=== PATIENT | male | born 1995 | race Caucasian/White ===

== ENCOUNTER 2024-04-20 20:06 | Emergency (ER) | payer MEDICAID, SELFPAY ==
[2024-04-20 20:07] VITALS: BP 139/95; PULSE 138; RESP 14; TEMP 36.5; O2SAT 96; BMI 22.8
[2024-04-20] MEDS: Penicillin Vk 250 MG Tablet 500 MG PO (21:31)
--- NOTE | 2024-04-20 21:34 | ED.VIS.DENTA ---
HPI History of Present Illness Chief Complaint: Dental Informant: patient Onset/Context/Timing Onset: Yesterday Context: Gradual Onset Timing: Continuous Quality: Aching Location: Left lower molars Worsened by: Eating Relieved by: - (Tylenol) Associated Symptoms Assocated Symptom - Dental: jaw swelling, face swelling and cold sensitivity; Negative for fever or hot sensitivity Narrative Narrative: Patient presents with left lower dental pain that began yesterday. Patient states that a piece of his left lower molar broke off yesterday. Patient describes his pain as aching. Patient states he was taking some Tylenol which helped somewhat. Patient states his pain is worse with eating. Patient admits to some swelling of his jaw and face. Patient also admits to some cold sensitivity. Patient denies any fevers or chills. PFSH PFSH Medical History no medical history no medical history Allergy/AdvReac Type Severity Reaction Status Date / Time No Known Allergies Allergy Verified 04/20/24 20:09 Family History no significant family his Surgical History no surgical history no surgical history Social History (Updated 04/20/24 @ 21:[address] Ray Munson, DO) Smoking Status: Current every day smoker tobacco type: cigarettes ROS ROS ED Constitutional Constitutional ED: Denies chills or fever(s) Eyes Eyes: Denies blurry vision or change in vision ENT ENT ED: Denies rhinorrhea or sore throat Cardiovascular Cardiovascular: Denies chest pain or palpitations Respiratory/Chest Respiratory/Chest: Denies cough or dyspnea Gastrointestinal Gastrointestinal: Denies nausea or vomiting Genitourinary Genitourinary ED: Denies dysuria or hematuria Musculoskeletal Musculoskeletal: Denies back pain or neck pain Integumentary Denies abscess or rash Neurologic Neurologic: Denies headache(s) or weakness Allergic/Immunologic Allergic/Immunologic ED: Denies mouth swelling or urticaria EXAM Physical Exam Const Vital Signs: 04/20/24 20:07 Temperature 97.7 F L Temperature Source Temporal Pulse Rate 138 H Respiratory Rate 14 Blood Pressure 139/95 H Blood Pressure Mean 109 Pulse Ox 96 Oxygen Delivery Method Room Air Positive well nourished and well developed General Appearance ED: well developed and NAD HEENT HEENT Narrative: There are multiple caries noted. There is tenderness to percussion over the left lower first molar. There is some gingival edema around this tooth. There is no fluctuance. There is no evidence of any abscess. There is no sublingual edema. There is no evidence of Jose Luis's angina. Mouth ED: Yes oral and palatal mucosa normal Mouth: oral and palatal mucosa normal Teeth and Gingiva: caries and gingiva abnormal Positive for gingival edema Throat: posterior oropharynx normal Neck no lymphadenopathy, supple and no JVD General: Negative for anterior neck swelling, tenderness or submandibular swelling Neuro oriented x3, CN's II-XII intact bilaterally, moves all extremities, no focal motor deficits and no sensory deficits noted Sensorium / Orientation: alert Motor Exam: strength 5/5 throughout MDM MDM MDM Narrative Medical decision making narrative: Smoking cessation was discussed. Patient was advised that these are most likely infected dental caries. Patient was given a dose of Pen-Vee K here. Patient was given a prescription for Pen-Vee K. Patient was given a dental referral list. Patient was instructed to follow-up in 5 to 7 days. Patient was instructed to take Tylenol or ibuprofen as needed for pain. Patient understood and was agreeable with the plan. All questions were answered. Discharge Plan Triage Chief Complaint: Dental ED Provider: Ray Munson Dx/Rx/DC Orders Clinical Impression: Infected dental caries, Tobacco use disorder Instructions: ED Dental Pain, ED Dental Cavity Stand Alone Forms: ED Work / School Excuse Primary Care Provider: Care Physician,No Primary Referrals: Care Physician,No Primary [Primary Care Provider] - Dentist,Your [STAFF PHYSICIAN] - 5-7 Days Print Language: [place] Disposition Disposition: Home, Self Care
== END 2024-04-20 21:54 | disposition home or self-care (01) ==
PROVIDERS: Emergency Provider Emergency Medicine; Visit Provider Emergency Medicine
DX: K02.9 Dental caries, unspecified (principal); F17.210 Nicotine dependence, cigarettes, uncomplicated
CPT/HCPCS: 99282

== ENCOUNTER 2024-09-22 17:00 | Emergency (ER) | payer MEDICAID, SELFPAY ==
[2024-09-22 17:01] VITALS: BP 115/78; PULSE 72; RESP 16; TEMP 37.1; O2SAT 98; BMI 23.1
[2024-09-22 17:04] VITALS: BP 115/78; PULSE 72; RESP 16; TEMP 37.1; O2SAT 98
--- OUTSIDE RECORDS SUMMARY | 2024-09-22 18:22 | XMS RPT_ITS | CCD ---
Author Organization [facility] Care Team Providers Care Airfield Services Officer Name Role Phone TOD GUAN Unavailable Unavailable ROGETOD LOPES Unavailable Unavailable NO REFERRING DR Unavailable Unavailable KAFOREY, TC Unavailable Unavailable KAFOREY, TC Unavailable Unavailable NO REFERRING DR Unavailable Unavailable NO REFERRING DR Unavailable Unavailable CONKLE, REMY Unavailable Unavailable CONKLE, REMY Unavailable Unavailable FRANK, REENA A Unavailable Unavailable FRANK, REENA A Unavailable Unavailable Arik Zepeda Unavailable Unavailable PROVIDER, UNKNOWN Unavailable Unavailable No, PCP Unavailable Unavailable Problems Active Problems Problem Classification Problem Date Documented Da te Episodic/Chronic External Injury - Struck by; against (1 source) Striking against or struck by other objects, initial encounter; Translations: [STRIKING AGNST/STRUCK OT] Onset: 08-09-2017 Substance-related disorders (2 sources) Cannabis abuse, uncomplicated; Translations: [Nicotine dependence, cigarettes, uncomplicated] Onset: 08-20-2017 Chronic Past or Other Problems Problem Classification Problem Date Documented Da te Episodic/Chronic Cardiac dysrhythmias (1 source) Palpitations; Translations: [PALPITATIONS] Onset: 08-20-2017 Episodic Nonspecific chest pain (7 sources) Other chest pain; Translations: [Chest pain, unspecified] Onset: 08-20-2017 Episodic Other aftercare (1 source) Other hand inspector (current) drug therapy; Translations: [OTH RN CARDIOLOGY CURRENT DR] Onset: 08-20-2017 Episodic Other injuries and conditions due to external causes (2 sources) Unspecified injury of right wrist, hand and finger(s), initial encounter; Translations: [UNS INJ RT WRIST HAND FI] Onset: 08-09-2017 Episodic Screening or history of mental health and substance abuse (1 source) Personal history of nicotine dependence; Translations: [PERSONAL HISTORY OF OSVALDO] Onset: 06-28-2017 Episodic Superficial injury; contusion (1 source) Contusion of right index finger without damage to nail, initial encounter; Translations: [CONTUS RT IF W/O DAMAGE] Onset: 08-09-2017 Episodic Results Test Name Value Interpretation Reference Range Facility ED NOTEon 01-30-2024 ED NOTE HNO ID: [id number] Author: MIHAI MCADAMS RN Service: Emergency Medicine Author Type: Registered Nurse Type: ED Notes Filed: 01/30/2024 18:14 Note Text: Patient is alert and oriented, denies any questions/concerns at this time. Patient verbalizes understanding of d/c instructions, medications and follow up care. Patient ambulates from department at this time with family member [facility] ED NOTE HNO ID: [id number] Author: MIHAI MCADAMS RN Service: Emergency Medicine Author Type: Registered Nurse Type: ED Notes Filed: 01/30/2024 16:53 Note Text: Pt reports working on his car when radiator fluid splashed onto his L hand and L side of face/ denies any SOB. Pt is alert and oriented brought in by EMS. Normal [facility] ED PROV NOTEon 01-30-2024 ED PROV NOTE HNO ID: [id number] Author: AMERICA VEGA MD Service: Emergency Medicine Author Type: Physician Type: ED Provider Notes Filed: 01/30/2024 18:08 Note Text: ED Provider Note Patient Name: Oscar Estrada : 1995 SERVICE DATE: 01/30/24 History Patient presents with: Dawn Oscar Estrada is a 28 year old male with history of no chronic medical problems who presents with Dawn. Patient took nothing for this prior to arrival. - Symptoms began this afternoon. - Severity: moderate - Timing: constant - Quality: Thermal burn left hand - Dawn is exacerbated by movement palpation. - Dawn is not exacerbated by elevation. - Symptoms are associated with nothing. - Symptoms are not associated with shortness of breath. - Improved by IV fentanyl per EMS. - Not improved by rest Patient was working on his car and took the radiator cap off and it was not cooled down enough so radiator fluid splashed on the left hand initially there was some thought that it also hit his face but he denies any face complaints just left hand complaints. He called EMS and hand was dressed he was given 100 mcg of fentanyl he is brought to the emergency department. Last tetanus vaccination within 5 years.. 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 - Ganglion cyst Ganglion/synovial cyst - Left Wrist - Other depressive episodes History of - not current - Paroxysmal tachycardia (HCC) PAST SURGICAL HISTORY Procedure Laterality Date - EAR SURGERY HX - PAST SURGICAL HISTORY OF lump removed from neck - TONSILLECTOMY HX FAMILY HISTORY Problem Relation Age of Onset - Thyroid Mother Thyroid Disorder - other (Bipolar Disorder) Mother - Thyroid Father Thyroid Disorder Social History Tobacco Use - Smoking status: Every Day Packs/day: .5 Types: Cigarettes - Smokeless tobacco: Former - Tobacco comments: since age 20yrs Vaping Use - Vaping Use: current everyday user - Substances: Nicotine Substance and Sexual Activity - Alcohol use: Yes Comment: occasional - Drug use: No Comment: No reported history. - Sexual activity: Not on file ALLERGIES No Known Allergies Review of Systems Constitutional: Negative for chills and fever. HENT: Negative for sore throat and trouble swallowing. Respiratory: Negative for cough and shortness of breath. Gastrointestinal: Negative for nausea and vomiting. Skin: Positive for color change and wound. Negative for rash. Allergic/Immunologic: Negative for environmental allergies, food allergies and immunocompromised state. Psychiatric/Behavioral: Negative for confusion. The patient is not nervous/anxious. Physical Exam Vitals [01/30/24 1651] BP Pulse Temp Temp src Resp SpO2 Weight Height 148/77 72 36.8 ?C (98.2 ?F) Temporal 16 98 % 62.6 kg (138 lb) 1.676 m (5' 6 ) Physical Exam Vitals and nursing note reviewed. Constitutional: General: He is not in acute distress. Appearance: Normal appearance. He is not ill-appearing, toxic-appearing or diaphoretic. Pulmonary: Effort: Pulmonary effort is normal. No respiratory distress. Musculoskeletal: General: Tenderness present. No swelling. Comments: Erythema to left hand and wrist consistent with thermal burn some blistering on the dorsal second third and fourth phalanges no circumferential dawn intact neurovascular less than 1% body surface area. Skin: General: Skin is warm and dry. Capillary Refill: Capillary refill takes less than 2 seconds. Findings: Erythema present. Neurological: General: No focal deficit present. Mental Status: He is alert and oriented to person, place, and time. Psychiatric: Mood and Affect: Mood normal. Behavior: Behavior normal. Thought Content: Thought content normal. Judgment: Judgment normal. Diagnostic Testing ED Labs Ordered and Reviewed - No data to display Procedures ED Course / Clinical Impression Clinical Impressions as of 01/30/24 1750 Burn of left hand, unspecified burn degree, unspecified site of hand, initial encounter MDM / Disposition / Plan First and second-degree thermal dawn left hand not circumferential no other injuries noted. Patient up-to-date on tetanus vaccination burn dressing was applied in the skin instructed how to do this at home as well recommend follow-up with the burn unit next week for reevaluation in the meantime elevation and pain control recommended. Return though if there is increased swelling. No indication for transfer or admission at this time. History and Record Review Clinical information obtained from an independent historian. History obtained from or confirmed by: parent. Differential Diagnoses - Thermal burn left hand is more likely for the following reason(s): suggested by HANDP - Cellulitis is less likely for the following reason(s): HANDP not suggestive Management Meds Given Durin (more content not included)... Normal [facility] ED NOTEon 12-07-2023 ED NOTE HNO ID: [id number] Author: NATALEE CLARK RN Service: Nursing Author Type: Registered Nurse Type: ED Notes Filed: 12/07/2023 15:32 Note Text: Patient leaves pleasant and cooperative, alert and oriented x 3 with regular and easy respirations. Discharge instructions discussed. There are no additional questions for the provider. Medications discussed with patients verbal understanding of purpose and potential side effects. Will follow up as directed or return to ED for worsening or life threatening symptoms. Normal [facility] ED NOTE HNO ID: [id number] Author: HEDY MAS, BETHEL Service: ? Author Type: Registered Nurse Type: ED Notes Filed: 12/07/2023 15:00 Note Text: Pain in left lower jaw,pt has multiple fractured teeth. Pt also has an appointment with dentist tomorrow and but is having pain Normal [facility] ED PROV NOTEon 12-07-2023 ED PROV NOTE HNO ID: [id number] Author: ROCHELLE SALCIDO MD Service: Emergency Medicine Author Type: Physician Type: ED Provider Notes Filed: 12/07/2023 17:59 Note Text: ED Provider Note Patient Name: Oscar Estrada : 1995 SERVICE DATE: 12/07/23 History Patient presents with: Dental Problem HPI 27-year-old gentleman with history as below presenting with complaints of dental pain. History is provided by patient, significant other at the bedside. Reports that he has multiple fractured teeth, very poor dentition. Reports that he been having pain intermittently to the left lower jaw from multiple teeth in the back. Symptoms seem to be worse in the last few days. Extremities dentist appointment for tomorrow presents for ED assessment as he feels that he needs an antibiotic. No difficulty swallowing or tolerating p.o. No fevers or chills. No jaw pain or stiffness. Has been taking Motrin intermittently without resolution but he is getting some relief. No recent antibiotic. No neck pain or stiffness. 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 Ganglion cyst Ganglion/synovial cyst - Left Wrist Other depressive episodes History of - not current Paroxysmal tachycardia (HCC) PAST SURGICAL HISTORY Procedure Laterality Date EAR SURGERY HX PAST SURGICAL HISTORY OF lump removed from neck TONSILLECTOMY HX FAMILY HISTORY Problem Relation Age of Onset Thyroid Mother Thyroid Disorder other (Bipolar Disorder) Mother Thyroid Father Thyroid Disorder Social History Tobacco Use Smoking status: Every Day Packs/day: .5 Types: Cigarettes Smokeless tobacco: Former Tobacco comments: since age 20yrs Vaping Use Vaping Use: current everyday user Substances: Nicotine Substance and Sexual Activity Alcohol use: Yes Comment: occasional Drug use: No Comment: No reported history. Sexual activity: Not on file ALLERGIES No Known Allergies Review of Systems As per HPI Physical Exam Vitals [12/07/23 1457] BP Pulse Temp Temp src Resp SpO2 Weight Height 128/87 90 36.5 ?C (97.7 ?F) Temporal Art 18 100 % 63.5 kg (140 lb) 1.676 m (5' 6 ) Physical Exam Well-appearing, non-toxic and in no obvious distress. Hemodynamically stable and afebrile Patient barbering. Very poor dentition, multiple dental caries and significant dental decay. Left lower jaw has got multiple fractured teeth with pieces missing and some erythema, swelling to gum in this area. No evidence of trismus. Floor mouth is soft. Posterior oropharynx is unremarkable. Neck is supple. No findings of Jose Luis's angina. Heart RRR w/o murmurs; Distal pulses intact Lungs CTAB Abd soft, NT, ND Patient moves all 4 extremities spontaneously and without deficit Diagnostic Testing ED Labs Ordered and Reviewed - No data to display Procedures ED Course / Clinical Impression Clinical Impressions as of 12/07/23 1756 Dental decay Acute pulpitis MDM / Disposition / Plan MDM Patient is a 27-year-old male with history as above presenting with complaints of dental pain. History and exam as above. Medical record reviewed. HPI obtained from patient, significant other at bedside DDx considered: Evidence of multiple dental caries, dental Decay but there is concern for pulpitis, periapical abscess on the left lower side. No evidence of Jose Luis's angina, no findings of trismus or extension of the infection. ED COURSE: Differential reviewed with patient, significant other at the bedside. Recommended antibiotics, OTC for symptom relief and close outpatient follow-up with dentistry. Dental resources provided. Patient will be started on Augmentin, prescription provided. Also provided prescription for Naprosyn, OTC adjuncts reviewed. Supportive care discussed and return precautions reviewed. Patient discharged from the Emergency Department. I do not feel that the patient's evaluation reveals any acute reason for admission at this time. I instructed them to either follow up with their primary care physician or promptly return to the Emergency Department for reevaluation should symptoms worsen or new symptoms develop. I explained what symptoms would indicate the need to return to the Emergency Department. Shared decision making was used. The patient voiced understanding of the treatment plan and is agreeable with it. SIGNATURE: Rochelle Salcido MD - ROCHELLE SALCIDO 12/07/23 1759 Normal [facility] Office-Progress Notes-Pr ovideron 12-11-2020 [facility] Office-Progress Notes-Provider Patient: OSCAR ESTRADA Age: 24 years Sex: Male : 1995 Associated Diagnoses: None Author: SHANA HAMLIN, CINTHIA Visit Information Visit type: Scheduled follow-up. Accompanied by: Family member. Source of history: Self. Referral source: Self. History limitation: None. Chief Complaint Wanted to get a cardiac checkup because of history of inappropriate tachycardia and vague left-sided chest pain. Lately patient has not had tachycardia but rarely gets chest pain left-sided lasted for few seconds. Patient also has a history of smoking and ADHD. He denies any dizziness or syncope. Chart and medication reviewed. Review of Systems Constitutional: No fever, No chills, No sweats. Eye: Negative. Ear/Nose/Mouth/Throat: Negative. Respiratory: No shortness of breath, No cough. Cardiovascular: Tachycardia, No syncope. Chest pain: Left sided. Gastrointestinal: No nausea, No vomiting. Genitourinary: Negative. Gynecologic Hematology/Lymphatics: No bruising tendency, No bleeding tendency. Endocrine: Negative. Musculoskeletal: Negative. Integumentary: No rash, No abrasions. Psychiatric: No anxiety, No depression. Health Status Allergies: Allergies (1) Active Reaction No Known Medication Allergies None Documented Current medications: Home Medications (2) Active Adderall XR 30 mg oral capsule, extended release 30 mg = 1 caps, ORAL, DAILY Drysol 20% topical solution 1 hui, PRN, Topical, QHS Problem list: Active Problems (6) Acne ADHD (attention deficit hyperactivity disorder) Knee Joint Pain Sinus tachycardia Smoker Tachycardia Histories Past Medical History: Past Medical History (4) Abnormal EKG Allergic conjunctivitis Shortness of breath URI (upper respiratory infection) Family History: Father: Family History- Hypothyroid, Hodgkin's Disease Hypothyroid. Comments: 07/05/2014 9:43 Areli Ramos Hypothyroid- Father Hodgkin's disease Comments: 07/05/2014 9:43 Areli Ramos Hodgkin's Disease- Father Sister: Family History- Blood Clotting disorder Asthma. Comments: 07/05/2014 9:39 Areli Ramos Asthma- Sister Blood clotting disorder. Comments: 07/05/2014 9:39 Areli Ramos In stable health, Blood Clotting disorder- Sister Mother: Family History- Blood Clotting disorder, Hypothyroid Blood clotting disorder. Comments: 07/05/2014 9:39 Areli Ramos Blood Clotting disorder- Mother, (Patient was tested and he was negative) Hypothyroid. Comments: 07/05/2014 9:39 Areli Ramos Hypothyroid- Mother Fibromyalgia. Comments: 07/05/2014 9:39 Areli Ramos Fibromyalgia- Mother Brother: Brother 2 Hypothyroid. Comments: 07/05/2014 9:39 EDT - Areli Dougherty In stable health- Brother 2, Hypothyroid Procedure history: Eustachian tubes (285978924). Adenoidectomy (960571302). Tonsillectomy ([id number]). Social History Social History Tobacco Never smoker, Exposure Tobacco/Smoke Exposure- Minimal when at dad's house. Psychosocial History No active psychosocial history has been recorded. Physical Examination Temperature 98.3 (09:57) Systolic Blood Pressure No result Diastolic Blood Pressure No result Pulse 62 (09:57) SpO2 No result Respiratory Rate No result VS/Measurements Documented vital signs, Vital Signs (last 24 hrs) Last Charted Heart Rate Apical 62 bpm (DEC 11:55) Weight 62 kg (DEC 11:55) Height 168 cm (DEC 11:55) BMI 21.97 (DEC 11:55) General: Alert and oriented, No acute distress. Skin: No cyanosis, Not jaundiced. Eye: Normal conjunctiva. HENT: Normocephalic. Neck: Supple, Non-tender, No carotid bruit, No jugular venous distention, No lymphadenopathy, No thyromegaly. Respiratory: Symmetrical chest wall expansion, No chest wall tenderness. Breath sounds: Bilateral, Anterior, Posterior, No wheezing, No crackles present. Cardiovascular: Normal rate, Regular rhythm, No murmur, No gallop, Good pulses equal in all extremities, Normal peripheral perfusion, No edema. Gastrointestinal: Soft, Non-tender, Normal bowel sounds, No organomegaly. Genitourinary: No costovertebral angle tenderness. Lymphatics: No lymphadenopathy neck, axilla, groin. Musculoskeletal: Normal range of motion, Normal strength, No tenderness, No deformity. Integumentary: Warm. Neurologic: Alert, Oriented, No focal deficits. Psychiatric: Cooperative, Normal judgment. Review / Management No qualifying data available Impression and Plan 1. Blood pressure is normal. 2. Chest pain noncardiac vague. 3. History of inappropriate tachycardia. 4. Smoker. Plan. 1. Done today within normal limits. 2. Reassured the patient. 3. Advised to quit smoking. 4. Follow-up appointment as needed. Electronically signed by Dr. Charley Saldana. Normal [facility] Ambulatory Clinical Summaryo n 12-11-2020 Ambulatory Clinical Summary OSCAR ESTRADA :1995 Visit Date:12/11/2020 Ambulatory Visit Instructions Your Diagnosis Attention-deficit hyperactivity disorder, combined type Nicotine dependence, cigarettes, uncomplicated Sinus tachycardia Your Care Team Attending Physician - CINTHIA SALDANA MD Primary Care Physician - ABBE COLLINS DO Procedures Performed Adenoidectomy Eustachian tubes Tonsillectomy Discharge Vitals Temperature (Tympanic) 98.3 ?F Heart Rate (Apical) 62 Temperature Tympanic (F): 98.3 degF (12/11/20 09:55:00) Height/Length Measured: 168 cm (12/11/20 09:55:00) Weight Measured: 62 kg (12/11/20 09:55:00) Body Mass Index Measured: 21.97 kg/m2 (12/11/20 09:55:00) Medications What How Much When Instructions Changed amphetamine-dextroampheta mine (Adderall XR 30 mg oral capsule, extended release) 1 Capsules Oral DAILY written January and march and given to mom Unchanged aluminum chloride hexahydrate topical (Drysol 20% topical solution) 1 Application Topical AT BEDTIME as needed for as needed for excessive sweating daily for 1 week then two times weekly What When Comments Stop Taking Non-Formulary Med (Acne Medication) pt and pt's mom doesn't know name Allergies No Known Medication Allergies Problems Ongoing - Any problem that you are currently receiving treatment for. ADHD (attention deficit hyperactivity disorder) Sinus tachycardia Smoker Tachycardia Education Materials Learning About Cardioversion What is cardioversion? Cardioversion helps your heart return to a normal rhythm. It treats problems like atrial fibrillation. It is also sometimes used in emergencies. It can correct a fast heartbeat that causes low blood pressure, chest pain, or heart failure. There are two types: ? The electrical type uses an electric current. The current enters your body through patches on your chest or back. ? The chemical type uses medicines. The medicine is usually put into your arm through a tube called an IV. How is cardioversion done? Your doctor may ask you to take medicines before the treatment. These help prevent blood clots. Your doctor will watch you closely to make sure that there are no problems. Electrical cardioversion The electrical procedure is done in a hospital. You will get medicine to help you relax and control the pain. Your doctor will put patches on your chest or back. The patches send an electric current to your heart. This resets your heart rhythm. The electrical part takes about 5 minutes. But you will probably be in the hospital for 1 to 2 hours. You will need to recover from the effects of the sedative medicine. Chemical cardioversion The chemical procedure is most often done in a hospital. In most cases, the medicine is put into your arm through a tube called an IV. But you may get medicines to take by mouth. You may feel a quick sting or pinch when the IV starts. The procedure usually takes about 4 to 8 hours. What can you expect after cardioversion? ? You can usually go home the same day. You will need someone to drive you home. ? Your doctor may have you take medicines daily. These help your heart beat normally and prevent blood clots. ? After electrical cardioversion, you may have redness where the patches were. This looks and feels like a sunburn. ? Abnormal heart rhythms sometimes come back after cardioversion. Follow-up care is a garcia part of your treatment and safety. Be sure to make and go to all appointments, and call your doctor if you are having problems. It's also a good idea to know your test results and keep a list of the medicines you take. Where can you learn more? Go to https://www.Variable.Wayfair t/patientEd Enter X886 in the search box to learn more about Learning About Cardioversion. Current as of: November 14, 2019 Content Version: 12.5; ? [employer]. Care instructions adapted under license by your healthcare professional. If you have questions about a medical condition or this instruction, always ask your healthcare professional. [employer] disclaims any warranty or liability for your use of this information. Common Emergency Awareness Tips IS IT A STROKE? Act FAST and Check for these signs: FACE Does the face look uneven? ARM Does one arm drift down? SPEECH Does their speech sound strange? TIME Call at any sign of stroke Heart Attack Signs Chest discomfort: Most heart attacks involve discomfort in the center of the chest and lasts more than a few minutes, or goes away and comes back. It can feel like uncomfortable pressure, squeezing, fullness or pain. Discomfort in upper body: Symptoms can include pain or discomfort in one or both arms, back, neck, jaw or stomach. Shortness of breath: With or without discomfort. Other signs: Breaking out in a cold sweat, nausea, or lightheaded. Remember, MINUTES DO MATTER. If you experience any of these heart attack warning signs, call to get immediate medical attention! Normal [facility] Discharge Educationon 2020 Discharge Education Cardiovascular Learning About Cardioversion What is cardioversion? Cardioversion helps your heart return to a normal rhythm. It treats problems like atrial fibrillation. It is also sometimes used in emergencies. It can correct a fast heartbeat that causes low blood pressure, chest pain, or heart failure. There are two types: ? The electrical type uses an electric current. The current enters your body through patches on your chest or back. ? The chemical type uses medicines. The medicine is usually put into your arm through a tube called an IV. How is cardioversion done? Your doctor may ask you to take medicines before the treatment. These help prevent blood clots. Your doctor will watch you closely to make sure that there are no problems. Electrical cardioversion The electrical procedure is done in a hospital. You will get medicine to help you relax and control the pain. Your doctor will put patches on your chest or back. The patches send an electric current to your heart. This resets your heart rhythm. The electrical part takes about 5 minutes. But you will probably be in the hospital for 1 to 2 hours. You will need to recover from the effects of the sedative medicine. Chemical cardioversion The chemical procedure is most often done in a hospital. In most cases, the medicine is put into your arm through a tube called an IV. But you may get medicines to take by mouth. You may feel a quick sting or pinch when the IV starts. The procedure usually takes about 4 to 8 hours. What can you expect after cardioversion? ? You can usually go home the same day. You will need someone to drive you home. ? Your doctor may have you take medicines daily. These help your heart beat normally and prevent blood clots. ? After electrical cardioversion, you may have redness where the patches were. This looks and feels like a sunburn. ? Abnormal heart rhythms sometimes come back after cardioversion. Follow-up care is a garcia part of your treatment and safety. Be sure to make and go to all appointments, and call your doctor if you are having problems. It's also a good idea to know your test results and keep a list of the medicines you take. Where can you learn more? Go to https://www.Variable.Wayfair t/patientEd Enter X886 in the search box to learn more about Learning About Cardioversion. Current as of: November 14, 2019 Content Version: 12.5; ? [employer]. Care instructions adapted under license by your healthcare professional. If you have questions about a medical condition or this instruction, always ask your healthcare professional. [employer] disclaims any warranty or liability for your use of this information. Normal [facility] ED NOTEon 09-16-2020 ED NOTE HNO ID: [id number] Author: Hedy Diane) BETHEL Mas Service: Emergency Medicine Author Type: Registered Nurse Type: ED Notes Filed: 09/17/2020 2:19 PM Note Text: Patient Call Back Information ? How are you doing ? better ? Did we appropriately manage your pain? Yes ? Did you understand your discharge instructions? Yes ? Did you get your prescriptions filled? Yes ? Were you able to make a follow-up appointment with your physician? No ? Were you comfortable during your stay here? Yes ? Did a member of the ER nursing team round on you during your visit? Yes ? You will receive a patient satisfaction survey in the mail in the nest 2 weeks, please take the time to fill out the survey as your input from your ER visit is very important to us. Yes ? Can we do anything else to help you? No Normal [facility] ED PROV NOTEon 09-16-2020 ED PROV NOTE HNO ID: [id number] Author: Angelito Dan MD Service: Emergency Medicine Author Type: Physician Type: ED Provider Notes Filed: 09/17/2020 2:33 AM Note Text: ED Provider Note Patient Name: Oscar Estrada SERVICE DATE: 09/16/20 History Patient presents with: Flu Like Symptoms Patient presents with concerns over acute upper respiratory symptoms, and he was sent home from work for evaluation. 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 Patient notes his fever was up to 101 at home. No medications were taken today prior to presentation. Sick contacts include nino, and 2 daughters with similar symptoms. Patient has no known coronavirus exposures. There is no nausea, vomiting, diarrhea. 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 - Ganglion cyst Ganglion/synovial cyst - Left Wrist - Other depressive episodes History of - not current - Paroxysmal tachycardia (HCC) PAST SURGICAL HISTORY Procedure Laterality Date - EAR SURGERY HX - PAST SURGICAL HISTORY OF lump removed from neck - TONSILLECTOMY HX FAMILY HISTORY Problem Relation Age of Onset - Thyroid Mother Thyroid Disorder - other (Bipolar Disorder) Mother - Thyroid Father Thyroid Disorder Social History Tobacco Use - Smoking status: Current Every Day Smoker Packs/day: 0.50 Types: Cigarettes - Smokeless tobacco: Former User - Tobacco comment: since age 20yrs Substance and Sexual Activity - Alcohol use: Yes Frequency: Monthly or less Comment: yearly - Drug use: No Comment: No reported history. - Sexual activity: Not on file ALLERGIES No Known Allergies Review of Systems Constitutional: Positive for fatigue and fever. HENT: Positive for congestion and rhinorrhea. Negative for ear discharge and sore throat. Eyes: Negative for photophobia. Respiratory: Positive for cough. Negative for shortness of breath and wheezing. Cardiovascular: Negative for chest pain. Gastrointestinal: Negative for abdominal pain, nausea and vomiting. Genitourinary: Negative for difficulty urinating. All other systems reviewed and are negative. Physical Exam BP 126/80 Pulse 86 Temp (Src) 99 (Temporal) Resp 16 Ht 5' 6 (1.68m) Wt 140 lb (63.5kg) SpO2 99% BMI 22.61 kg/(m2). O2 Therapy: Room Air Physical Exam Vitals signs and nursing note reviewed. Constitutional: Appearance: He is well-developed. HENT: Head: Normocephalic and atraumatic. Right Ear: Tympanic membrane normal. Left Ear: Tympanic membrane normal. Nose: Congestion present. Mouth/Throat: Mouth: Mucous membranes are moist. Pharynx: No oropharyngeal exudate or posterior oropharyngeal erythema. Eyes: General: Right eye: No discharge. Left eye: No discharge. Neck: Musculoskeletal: Normal range of motion and neck supple. No neck rigidity or muscular tenderness. Cardiovascular: Rate and Rhythm: Normal rate and regular rhythm. Pulmonary: Effort: No respiratory distress. Abdominal: General: There is no distension. Tenderness: There is no abdominal tenderness. There is no guarding or rebound. Lymphadenopathy: Cervical: No cervical adenopathy. Skin: Findings: No rash. Neurological: Mental Status: He is alert and oriented to person, place, and time. Psychiatric: Behavior: Behavior normal. Thought Content: Thought content normal. Judgment: Judgment normal. Diagnostic Testing ED Labs Ordered and Reviewed - No data to display Procedures ED Course / Clinical Impression Clinical Impressions as of Sep 17 229 Upper respiratory tract infection, unspecified type MDM / Disposition / Plan Is a 24-year-old male patient, with no significant past medical history, who presents to the emergency department concerns of her viral URI. Patient is concerned as he was sent home from work, and cannot return and her seasonal evaluation. Sick contacts include fiance, and 2 daughters at home with same presentation. Despite the above patient has no known coronavirus exposures. Auscultation however does have cough, congestion, fevers. Physical exam with symptoms consistent with URI, no bacterial focus is appreciated. Patient has stable vitals, without fever, tachycardia, hypotension. Patient has no admission criteria. Coronavirus testing is obtained secondary to patient concerning exposure, and missing work. Overall though this is likely a viral URI, was sick family contacts. Coronavirus testing was obtained, and patient is given a work note, excuse until his results aren't known COVID-19 (Novel Coronavirus): ? You are being tested for COVID-19.? ?You will be notified within 2 days if your test comes back positive.? While awaiting these results, please refer to the following recommendations from the CDC regarding isolation precautions:? Steps to Follow: Isolation: You should follow the prevention steps below until a healthcare provider or local or state health department says you can return to your normal activities. Stay home except to get medical care People who are mildly ill with COVID-19 are able to isolate at home during their illness. You should restrict activities outside your home, except for getting medical care. Do not go to work, school, or public areas. Avoid using public transportation, ride-sharing, taxis, or public air travel. Separate yourself from other people and animals in your home People: As much as possible, you should stay in a specific room and away from other people in your home. Also, you should use a separate bathroom, if available. Animals: You should restrict contact with pets and other animals while you are sick with COVID-19, just like you would around other people. Although there have not been reports of pets or other animals becoming sick with COVID-19, it is still recommended that people sick with COVID-19 limit contact with animals until more information is known about the virus. When possible, have another member of your household care for your animals while you are sick. If you are sick with COVID-19, avoid contact with your pet, including petting, snuggling, being kissed or licked, and sharing food. If you must care for your pet or be around animals while you are sick, wash your hands before and after you interact with pets and wear a facemask. See?COVID-19 and Animals?for more information. Call ahead before visiting your doctor If you have a medical appointment, call the healthcare provider and tell them that you have or may have COVID-19. This will help the healthcare provider's office take steps to keep other people from getting infected or exposed. Personal Protection: You should wear a facemask when you are around other people (e.g., sharing a room or vehicle) or pets. If you are not able to wear a facemask (for example, because it causes trouble breathing), then people who live with you should not stay in the same room with you, or they should wear a facemask if they enter your room. Cover your coughs and sneezes Cover your mouth and nose with a tissue when you cough or sneeze. Throw used tissues in a lined trash can. Immediately wash your hands with soap and water for at least 20 seconds or, if soap and water are not available, clean your hands with an alcohol-based hand automotive professional that contains at least 60% alcohol. Wash your hands often with soap and water for at least 20 seconds, especially after blowing your nose, coughing, or sneezing; going to the bathroom; and before eating or preparing food. If soap and water are not readily available, use an alcohol-based hand automotive professional with at least 60% alcohol, covering all surfaces of your hands and rubbing them together until they feel dry.? Soap and water are the best option if hands are visibly dirty. Avoid touching your eyes, nose, and mouth with unwashed hands. Avoid sharing personal household items You should not share dishes, drinking glasses, cups, eating utensils, towels, or bedding with other people or pets in your home. After using these items, they should be washed thoroughly with soap and water. Clean all High-touch surfaces everyday High touch surfaces include counters, tabletops, doorknobs, bathroom fixtures, toilets, phones, keyboards, tablets, and bedside tables. Use a household cleaning spray or wipe, according to the label instructions. Labels contain instructions for safe and effective use of the cleaning product including precautions you should take when applying the product, such as wearing gloves and making sure you have good ventilation during use of the product. Monitor your symptoms: Seek prompt medical attention if your illness is worsening (e.g., difficulty breathing). Before?seeking care, call your healthcare provider and tell them that you have, or are being evaluated for, COVID-19. Put on a facemask before you enter the facility. These steps will help the healthcare provider's office to keep other people in the office or waiting room from getting infected or exposed. If you have a medical emergency and need to call 911, notify the dispatch personnel that you have, or are being evaluated for COVID-19. If possible, put on a facemask before emergency medical services arrive. Discontinuing home isolation: Patients with confirmed COVID-19 should remain under home isolation precautions until the risk of secondary transmission to others is thought to be low. The decision to discontinue home isolation precautions should be made on a [id number] basis, in consultation with healthcare providers and state and local health departments. Close contacts (household members, intimate partners, and caregivers) should follow these recommendations: Close contacts should monitor their health; they should call their healthcare provider right away if they develop symptoms suggestive of COVID-19 (e.g., fever, cough, shortness of breath) (see?Interim [place] Guidance for Risk Assessment and Public Health Management of Persons with Potential Coronavirus Disease 2019 (COVID-19) Exposure in Travel-associated or Community Settings.) Make sure that you understand and can help the patient follow their healthcare provider's instructions for medication(s) and care. You should help the patient with basic needs in the home and provide support for getting groceries, prescriptions, and other personal needs. Monitor the patient's symptoms. If the patient is getting sicker, call their healthcare provider and tell them that the patient is being tested for COVID-19. This will help the healthcare provider's office take steps to keep other people in the office or waiting room from getting infected. Ask the healthcare provider to call the local or state health department for additional guidance. If the patient has a medical emergency and you need to call 911, notify the dispatch personnel that the patient has, or is being evaluated for COVID-19. Household members should stay in another room or be from the patient as much as possible. Household members should use a separate bedroom and bathroom, if available. Prohibit visitors who do not have an essential need to be in the home. Make sure that shared spaces in the home have good air flow, such as by an air conditioner or an opened window, weather permitting. Perform hand hygiene frequently. Wash your hands often with soap and water for at least 20 seconds or use an alcohol-based hand automotive professional that contains 60 to 95% alcohol, covering all surfaces of your hands and rubbing them together until they feel dry. Soap and water should be used preferentially if hands are visibly dirty. Avoid touching your eyes, nose, and mouth with unwashed hands. The patient should wear a facemask when around other people. If the patient is not able to wear a facemask (for example, because it causes trouble breathing), you, as the caregiver, should wear a mask when you are in the same room as the patient. Wear a disposable facemask and gloves when you touch or have contact with the patient's blood, stool, or body fluids, such as saliva, sputum, nasal mucus, vomit, urine. Throw out disposable facemasks and gloves after using them. Do not reuse. When removing personal protective equipment, first remove and dispose of gloves. Then, immediately clean your hands with soap and water or alcohol-based hand automotive professional. Next, remove and dispose of facemask, and immediately clean your hands again with soap and water or alcohol-based hand automotive professional. Avoid sharing household items with the patient. You should not share dishes, drinking glasses, cups, eating utensils, towels, bedding, or other items. After the patient uses these items, you should wash them thoroughly Wash laundry thoroughly. Immediately remove and wash clothes or bedding that have blood, stool, or body fluids on them. Wear disposable gloves while handling soiled items and keep soiled items away from your body. Clean your hands (with soap and water or an alcohol-based hand automotive professional) immediately after removing your gloves. Read and follow directions on labels of laundry or clothing items and detergent. In general, using a normal laundry detergent according to washing machine instructions and dry thoroughly using the warmest temperatures recommended on the clothing label. Place all used disposable gloves, facemasks, and other contaminated items in a lined container before disposing of them with other household waste. Clean your hands (with soap and water or an alcohol-based hand automotive professional) immediately after handling these items. Soap and water should be used preferentially if hands are visibly dirty. Discuss any additional questions with your state or local health department or healthcare provider. Additional information Home healthcare personnel should refer to?Interim Infection Prevention and Control Recommendations for Patients with Known or Patients Under Investigation for Coronavirus Disease 2019 (COVID-19) in a Healthcare Setting. Close contact is defined as? a) being within approximately 6 feet (2 meters) of a COVID-19 case for a prolonged period of time; close contact can occur while caring for, living with, visiting, or sharing a health care waiting area or room with a COVID-19 case ? or ? b) having direct contact with infectious secretions of a COVID-19 case (e.g., being coughed on). Please note this report has been produced using speech recognition software and may contain errors related to that system including errors in grammar, punctuation, and spelling, as well as words and phrases that may be inappropriate. If there are any questions or concerns please feel free to contact the dictating physician for clarification. Disposition The patient was discharged. Counseled patient regarding suspected diagnosis. As well as the need for follow-up. Discharged home with verbal and written instructions. They were instructed to return as needed for persistent or worsening symptoms or any new concerns. Condition at disposition is improved. SIGNATURE: MD Angelito Barclay MD 09/17/20 0233 Normal [facility] ED NOTEon 03-23-2020 ED NOTE HNO ID: [id number] Author: José Antonio ScottRn) BETHEL Hoff Service: Emergency Medicine Author Type: Registered Nurse Type: ED Notes Filed: 03/24/2020 8:40 AM Note Text: Patient Call Back Information ? How are you doing ? better ? Did we appropriately manage your pain? Yes ? Did you understand your discharge instructions? Yes ? Did you get your prescriptions filled? Yes ? Were you able to make a follow-up appointment with your physician? Yes ? Were you comfortable during your stay here? Yes ? Did a member of the ER nursing team round on you during your visit? Yes ? You will receive a patient satisfaction survey in the mail in the nest 2 weeks, please take the time to fill out the survey as your input from your ER visit is very important to us. Yes ? Can we do anything else to help you? Yes Normal [facility] ED NOTE HNO ID: [id number] Author: Jenny ScottRn) BETHEL Talavera Service: Emergency Medicine Author Type: Registered Nurse Type: ED Notes Filed: 03/23/2020 4:46 PM Note Text: Pt reports nausea that started last night with a couple episodes of vomiting Pt denies abdominal pain or diarrhea. Reports I figured Id get it checked out since I missed work today Normal [facility] ED PROV NOTEon 03-23-2020 ED PROV NOTE HNO ID: [id number] Author: America Vega MD Service: Emergency Medicine Author Type: Physician Type: ED Provider Notes Filed: 03/23/2020 4:50 PM Note Text: ED Provider Note Patient Name: Oscar Estrada SERVICE DATE: 03/23/20 History Patient presents with: Nausea AND Vomiting Oscar Estrada is a 24 year old male with history of nausea who presents with Nausea AND Vomiting. Patient took nothing for this prior to arrival. - Symptoms began 1 days prior to arrival. - Severity: mild - Timing: intermittent - Quality: Nausea with a couple episodes of emesis - Nausea AND Vomiting is exacerbated by nothing. - Nausea AND Vomiting is not exacerbated by movement. - Symptoms are associated with 2 loose stools nonbloody. - Symptoms are not associated with chills, fever, shortness of breath and URI symptoms. - Improved by rest. Patient denies any abdominal pain just nausea and a couple episodes of emesis last night still nauseated today unable to work secondary to symptoms today but overall is starting to feel better. 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 - Ganglion cyst Ganglion/synovial cyst - Left Wrist - Other depressive episodes History of - not current - Paroxysmal tachycardia (HCC) PAST SURGICAL HISTORY Procedure Laterality Date - EAR SURGERY HX - PAST SURGICAL HISTORY OF lump removed from neck - TONSILLECTOMY HX FAMILY HISTORY Problem Relation Age of Onset - Thyroid Mother Thyroid Disorder - other (Bipolar Disorder) Mother - Thyroid Father Thyroid Disorder Social History Tobacco Use - Smoking status: Current Every Day Smoker Packs/day: 0.50 Types: Cigarettes - Smokeless tobacco: Former User - Tobacco comment: since age 20yrs Substance and Sexual Activity - Alcohol use: Not Currently Comment: yearly - Drug use: No Comment: No reported history. - Sexual activity: Not on file ALLERGIES No Known Allergies Review of Systems Constitutional: Negative for chills and fever. HENT: Negative for congestion and sore throat. Respiratory: Negative for cough and shortness of breath. Cardiovascular: Negative for chest pain and palpitations. Gastrointestinal: Positive for diarrhea, nausea and vomiting. Negative for abdominal pain. Genitourinary: Negative for dysuria, flank pain and frequency. Musculoskeletal: Negative for back pain, myalgias, neck pain and neck stiffness. Skin: Negative for color change, pallor, rash and wound. Allergic/Immunologic: Negative for environmental allergies, food allergies and immunocompromised state. Neurological: Negative for dizziness and light-headedness. Psychiatric/Behavioral: Negative for confusion. The patient is not nervous/anxious. Physical Exam BP 122/77 Pulse 80 Temp (Src) 98.1 (Temporal) Resp 14 Ht 5' 6 (1.68m) Wt 150 lb (68.0kg) SpO2 98% BMI 24.22 kg/(m2). O2 Therapy: Room Air Physical Exam Vitals signs and nursing note reviewed. Constitutional: General: He is not in acute distress. Appearance: He is normal weight. He is not ill-appearing, toxic-appearing or diaphoretic. HENT: Head: Normocephalic and atraumatic. Mouth/Throat: Mouth: Mucous membranes are moist. Pharynx: Oropharynx is clear. No pharyngeal swelling. Eyes: General: No scleral icterus. Extraocular Movements: Extraocular movements intact. Cardiovascular: Rate and Rhythm: Normal rate and regular rhythm. Heart sounds: Normal heart sounds. Pulmonary: Effort: Pulmonary effort is normal. No respiratory distress. Breath sounds: Normal breath sounds. Abdominal: General: Abdomen is flat. There is no distension. Palpations: Abdomen is soft. Tenderness: There is no abdominal tenderness. There is no guarding or rebound. Hernia: No hernia is present. Skin: General: Skin is warm and dry. Capillary Refill: Capillary refill takes less than 2 seconds. Findings: No rash. Neurological: General: No focal deficit present. Psychiatric: Mood and Affect: Mood is not anxious or depressed. Behavior: Behavior normal. Diagnostic Testing ED Labs Ordered and Reviewed - No data to display Procedures ED Course / Clinical Impression Clinical Impressions as of Mar 23 1647 Nausea MDM / Disposition / Plan Nontoxic well hydrated no acute abdomen taking fluids but decreased appetite some nausea but no vomiting. No specific exposure history. No respiratory symptoms. Patient was given Zofran 4 mg ODT and feeling better at this time sounds more like a gastroenteritis however I did discuss with him to watch for any localizing pain or fever if those occur he will return. Patient in agreement with plan. Disposition The patient was discharged. Counseled patient regarding suspected diagnosis. As well as the need for follow-up. Discharged home with verbal and written instructions. They were instructed to return as needed for persistent or worsening symptoms or any new concerns. Condition at disposition is stable and improved. SIGNATURE: MD America Leal MD 03/23/20 1650 Normal [facility] Basic Panelon 10-29-2017 Anion gap 9 mmol/L Normal 8-20 [facility] Comment on above: Performed By: #### L P8 ####[address] [address] BUN (urea nitrogen) 13 mg/dL Normal 7-25 [facility] Comment on above: Performed By: #### L P8 ####[address] [address] BUN/Creatinine Ratio 14 mg/mg Normal 10-20 [facility] Comment on above: Performed By: #### L P8 ####[facility] [place], [place] [address] Calcium 9.3 mg/dL Normal 8.5-10.1 [facility] Comment on above: Performed By: #### L P8 ####[address] [address] Chloride 102 mmol/L Normal 98-107 [facility] Comment on above: Performed By: #### L P8 ####[address] [address] CO2 29 mmol/L Normal 21-32 [facility] Comment on above: Performed By: #### L P8 ####[place] [address] Creatinine 0.95 mg/dL Normal 0.67-1.17 [facility] Comment on above: Performed By: #### L P8 ####[address] [address] Glucose mass conc 100 mg/dL High 70-99 [facility] Comment on above: Performed By: #### L P8 ####[place] [address] Potassium molar conc 3.7 mmol/L Normal 3.5-5.1 [facility] Comment on above: Performed By: #### L P8 ####[place] [address] Sodium 136 mmol/L Normal 136-145 [facility] Comment on above: Performed By: #### L P8 ####[address] [address] MDRD eGFRon 10-29-2017 eGFR (non-black) mL/min/{1.73_m2} Normal >60mL/m in/1.7 3m2 [facility] Comment on above: Result Comment: If t he patient is , multiply the result by 1.210. Performed By: #### L GFR ####[place] [address] CR Chest PA/LATon 08-22-2017 CR Chest PA/LAT Patient Name: OSCAR ESTRADA Diagnostic Radiology Exam Date/Time 08/22/2017 04:24:12 EDT Exam CR Chest PA/LAT Ordering Physician MICHELLE RENEE DIANE A. Accession Number [id number] CPT4 Codes 82255 () Reason For Exam chest pain Report CLINICAL INFORMATION: Chest pain. PA and lateral views of the chest are provided without comparison. FINDINGS: The cardiac silhouette and mediastinum are within normal limits. The lungs are free of infiltrate or pleural effusion. The visualized bones and soft tissues are grossly unremarkable. IMPRESSION: 1. No evidence of an acute cardiopulmonary process. Report Dictated on Workstation: [id number] Dictated: 08/22/2017 4:48 am Dictating Physician: MD ARANGO JEFFREY Signed Date and Time: 08/22/2017 4:48 am Signed by: MD ARANGO JEFFREY Transcribed Date and Time: 08/22/2017 4:48 Normal [facility] Basic Panelon 08-20-2017 Anion gap 10 mmol/L Normal 8-20 [facility] Comment on above: Performed By: #### L P8 ####[address] [address] BUN (urea nitrogen) 13 mg/dL Normal 7-25 [facility] Comment on above: Performed By: #### L P8 ####[facility] [place], [place] [address] BUN/Creatinine Ratio 13 mg/mg Normal 10-20 [facility] Comment on above: Performed By: #### L P8 ####[facility] [place], [place] [address] Calcium 9.3 mg/dL Normal 8.5-10.1 [facility] Comment on above: Performed By: #### L P8 ####[address] [address] Chloride 105 mmol/L Normal 98-107 [facility] Comment on above: Performed By: #### L P8 ####[address] [address] CO2 29 mmol/L Normal 21-32 [facility] Comment on above: Performed By: #### L P8 ####[facility] [place] [address] Creatinine 1.04 mg/dL Normal 0.67-1.17 [facility] Comment on above: Performed By: #### L P8 ####[facility] [place] [address] Glucose mass conc 108 mg/dL High 70-99 [facility] Comment on above: Performed By: #### L P8 ####[facility] [place] [address] Potassium molar conc 4.2 mmol/L Normal 3.5-5.1 [facility] Comment on above: Performed By: #### L P8 ####[place] [address] Sodium 139 mmol/L Normal 136-145 [facility] Comment on above: Performed By: #### L P8 ####[place] [address] CHEST SINGLE VIEWon 08-20-20 CHEST SINGLE VIEW Performed at [facility] APPROVED BY: Jose Ramon Moore MD EXAMINATION: CHEST RADIOGRAPH (SINGLE VIEW AP OR PA) Clinical History: chest painM: [id number]: 06/28/2017 RESULT: Lines, tubes, and devices: None. Lungs and pleura: No consolidation. No lung mass. No pleural effusion. Cardiomediastinal silhouette: Normal cardiomediastinal silhouette. Other: IMPRESSION: No acute radiographic abnormality. Normal [facility] D-Dimer Quantitativeon 08-20 D-Dimer Quantitative 57 ng/mL(FEU) Normal <450 [facility] Comment on above: Result Comment: The cutoff level recommended for the exclusion of deep veinthrombosis (DVT) or pulmonary embolism (PE) is 450 ng/mL(FEU).It is recommended that DVT or PE exclusion be restricted tosuspected outpatients with a low to moderate pretest probabilitymodel. Performed By: #### L DMR ####[place] [address] Hemogram/Diffon 08-20-2017 Basophils Auto #/vol (Bld) 0.04 thou/cmm Normal 0.00-0.08 [facility] Comment on above: Performed By: #### L CBCD ####[place] [address] Basophils/100 WBC Auto (Bld) 0.5 % Normal [facility] Comment on above: Performed By: #### L CBCD ####[place] [address] Eosinophils 0.14 thou/cmm Normal 0.00-0.41 [facility] Comment on above: Performed By: #### L CBCD ####[place] [address] Eosinophils/100 leukocytes 1.9 % Normal [facility] Comment on above: Performed By: #### L CBCD ####[place] [address] Erythrocyte distribution width Auto Ratio (RBC) 12.0 % Normal 11.5-15.9 [facility] Comment on above: Performed By: #### L CBCD ####[place] [address] Erythrocytes (RBC) 4.60 mil/cmm Normal 4.60-6.20 [facility] Comment on above: Performed By: #### L CBCD ####[place] [address] Hematocrit (HCT) 42.2 % Normal 42.0-52.0 [facility] Comment on above: Performed By: #### L CBCD ####[place] [address] Hemoglobin mass conc (Bld) 14.3 g/dL Normal 14.0-18.0 [facility] Comment on above: Performed By: #### L CBCD ####[place] [address] Lymphocytes 2.16 thou/cmm Normal 1.50-3.65 [facility] Comment on above: Performed By: #### L CBCD ####[address] [address] Lymphocytes/100 leukocytes 29.6 % Normal [facility] Comment on above: Performed By: #### L CBCD ####[address] [address] MCH 31.1 pg High 27.0-31.0 [facility] Comment on above: Performed By: #### L CBCD ####[address] [address] MCHC mass conc (RBC) 33.9 % Normal 32.0-36.0 [facility] Comment on above: Performed By: #### L CBCD ####[place] [address] MCV 91.7 fL Normal 80.0-94.0 [facility] Comment on above: Performed By: #### L CBCD ####[place] [address] Monocytes 0.81 thou/cmm Normal 0.20-1.00 [facility] Comment on above: Performed By: #### L CBCD ####[place] [address] Monocytes/100 leukocytes 11.1 % Normal [facility] Comment on above: Performed By: #### L CBCD ####[address] [address] Platelet mean volume (PMV) 9.0 fL Normal 7.1-10.5 [facility] Comment on above: Performed By: #### L CBCD ####[address] [address] Platelets 271 thou/cmm Normal 150-400 [facility] Comment on above: Performed By: #### L CBCD ####[address] [address] Seg Neutrophil 56.9 % Normal [facility] Comment on above: Performed By: #### L CBCD ####[place] [address] Seg. Neut.# 4.15 thou/cmm Normal 3.00-5.67 [facility] Comment on above: Performed By: #### L CBCD ####[address] [address] WBC (Leukocytes) 7.3 thou/cmm Normal 4.8-10.8 [facility] Comment on above: Performed By: #### L CBCD ####[place] [address] MDRD eGFRon 08-20-2017 eGFR (non-black) mL/min/{1.73_m2} Normal >60mL/m in/1.7 3m2 [facility] Comment on above: Result Comment: If t he patient is , multiply the result by 1.210. Performed By: #### L GFR ####[place] [address] Troponin Ion 08-20-2017 Troponin I.cardiac mass conc ng/mL Normal <=0.07 [facility] Comment on above: Performed By: #### L TRP ####[place] [address] Urine Drug Screenon 08-20-20 17 Urine Amphetamine Non-Detected Normal Non-Detected [facility] Comment on above: Performed By: #### L UDR2 ####[place] [address] Urine Barbiturates Non-Detected Normal Non-Detected [facility] Comment on above: Performed By: #### L UDR2 ####[place] [address] Urine Benzodiazepine Non-Detected Normal Non-Detected [facility] Comment on above: Performed By: #### L UDR2 ####[place] [address] Urine Buprenorphine Non-Detected Normal Non-Detected [facility] Comment on above: Result Comment: Urin e Drug Cutoff LevelsUrine Amphetamine 500 ng/mLUrine Barbituate 200 ng/mLUrine Benzodiazepines 150 ng/mLUrine Cocaine 150 ng/mLUrine Methamphetamines 500 ng/mLUrine Methadone 200 ng/mLUrine Opiates 100 ng/mLUrine Oxycodone 100 ng/mLUrine Phencyclidine (PCP) 25 ng/mLUrine Propoxyphene 300 ng/mLUrine Tricyclics 300 ng/mLUrine THC 50 ng/mLUrine Buprenorphine 10 ng/mLThe results of these analytes are unconfirmed and reportedqualitatively as detected or non-detected relative to the cutoff value.Detected results indicate the sample is likely to contain the analyte.Non-detected results indicate that either the sample does notcontain the analyte or it is present in concentrations belowthe cutoff level. This drug screen should be used for medical diagnosticpurposes only.Testing Performed at: [address] [address] Performed By: #### L UDR2 ####[place] [address] Urine Cocaine Non-Detected Normal Non-Detected [facility] Comment on above: Performed By: #### L UDR2 ####[place] [address] Urine Methadone Non-Detected Normal Non-Detected [facility] Comment on above: Performed By: #### L UDR2 ####[place] [address] Urine Methamphetamine Non-Detected Normal Non-Detected [facility] Comment on above: Performed By: #### L UDR2 ####[place] [address] Urine Opiate Non-Detected Normal Non-Detected [facility] Comment on above: Performed By: #### L UDR2 ####[place] [address] Urine Oxycodone Non-Detected Normal Non-Detected [facility] Comment on above: Performed By: #### L UDR2 ####[place] [address] Urine PCP Non-Detected Normal Non-Detected [facility] Comment on above: Performed By: #### L UDR2 ####[place] [address] Urine Propoxyphene Non-Detected Normal Non-Detected [facility] Comment on above: Performed By: #### L UDR2 ####[address] [address] Urine THC see below Normal Non-Detected [facility] Comment on above: Result Comment: Dete cted (unconfirmed) Performed By: #### L UDR2 ####[address] [address] Urine Tricyclics Non-Detected Normal Non-Detected [facility] Comment on above: Performed By: #### L UDR2 ####[facility] [place], [place] [address] HAND MIN 3 VIEW UNILATERALon 08-09-2017 HAND MIN 3 VIEW UNILATERAL Performed at [facility] APPROVED BY: Tod Munoz MD EXAM TITLE: RIGHT HAND MIN 3 VIEW UNILATERAL DATE: 08/09/2017 16:30 COMPARISON: None. CLINICAL INDICATION/HISTORY: Second digit pain status post recent injury. TECHNIQUE: PA, lateral and oblique views of the hand are presented. FINDINGS:No fractures or subluxations are noted.No bony erosions are seen.The joint spaces are well preserved.The mineralization of the bones is normal.There is no significant soft tissue swelling. IMPRESSION: No radiographic evidence of acute fracture or dislocation involving the right hand. Normal [facility] CHEST SINGLE VIEWon 06-28-20 CHEST SINGLE VIEW Performed at [facility] APPROVED BY: CHE PARR MD TECHNIQUE: CHEST X-RAY PORTABLE SINGLE VIEW EXAM DATE: 06/28/2017 4:46 AM COMPARISON STUDIES: 01/28/2009 CLINICAL HISTORY: chest pain RESULT: Cardiomediastinal silhouette within normal limits. No overt pneumothorax or pleural effusion or focal consolidation. IMPRESSION:No acute abnormality Normal [facility] Troponin Ion 06-28-2017 Troponin I.cardiac mass conc ng/mL Normal <=0.07 [facility] Comment on above: Performed By: #### L TRP ####[address] [address] Encounters Encounter Date Encounter Type Care Provider Facility Start: 01-30-2024 Emergency department patient visit Facility:[facility] Start: 12-07-2023 Emergency department patient visit Facility:[facility] Start: 10-05-2017 Ambulatory ERENA Schreiber y:[facility] Start: 08-22-2017 Ambulatory Arik Zepeda [facility] Start: 08-20-2017 End: 08-20-2017 Emergency department patient visit NO REFERRING DR Facility:[facility] Start: 08-09-2017 End: 08-09-2017 Emergency department patient visit TC DAVIES Facility:[facility] Start: 06-28-2017 End: 06-28-2017 Emergency department patient visit TOD GUAN Facility:[facility] Payers Date Payer Category Payer Medicaid [id number] Medicaid [id number] Unknown Summary Purpose Family History No Family History Records FoundNo Family History Records FoundNo Family History Records FoundNo Family History Records FoundNo Family History Records Found Advance Directives No Advanced Directives Records FoundNo Advanced Directives Records FoundNo Advanced Directives Records FoundNo Advanced Directives Records FoundNo Advanced Directives Records Found Additional Source Comments (unrecognized sect ion and content) No Status Records FoundNo Status Records FoundNo Status Records FoundNo Status Records FoundNo Status Records Found INFORMATION SOURCE (unrecogn ized section and content) DATE CREATED AUTHOR 05/25/2018 [facility] DATE CREATED AUTHOR AUTHOR'S ORGANIZ ATION 05/28/2018 [facility] DATE CREATED AUTHOR AUTHOR'S ORGANIZ ATION 09/17/2020 [facility] DATE CREATED AUTHOR AUTHOR'S ORGANIZ ATION 12/12/2020 [facility] DATE CREATED AUTHOR AUTHOR'S ORGANIZ ATION 02/01/2024 [facility] FOR RECORDS PERTAINING TO PATIENTS WHO ARE OR HAVE BEEN ENROLLED IN A CHEMICAL DEPENDENCY/SUBSTANCEABUSE PROGRAM, SOME INFORMATION MAY BE OMITTED. This clinical summary was aggregated from multiple sources. Caution should be exercised in using it in the provision of clinical care. This summary normalizes information from multiple sources, and as a consequence, information in this document may materially change the coding, format and clinical context of patient data. In addition, data may be omitted in some cases. CLINICAL DECISIONS SHOULD BE BASED ON THE PRIMARY CLINICAL RECORDS. [facility] [employer] [facility]. provides no warranty or guarantee of the accuracy or completeness of information in this document.
== END 2024-09-22 18:14 | disposition left against medical advice (07) ==
LOC: ED 18:19
DX: Z53.21 Procedure and treatment not carried out due to patient leaving prior to being seen by health care provider (principal)

== ENCOUNTER 2025-08-21 00:31 | Emergency (ER) | payer MEDICAID, SELFPAY ==
[2025-08-21 00:32] VITALS: BP 129/92; PULSE 88; RESP 16; TEMP 36.5; O2SAT 100; BMI 22.2
--- NOTE | 2025-08-21 00:36 | EX.ED.VIS.UR ---
HPI HPI - URI History of Present Illness Chief Complaint: Sore Throat Informant: patient Onset/Context/Timing Onset: Days (5) Context: Gradual Onset Timing: Continuous Quality: Sharp Location: Throat, left worse than right Worsened by: Swallowing Relieved by: - (Nothing) Associated Symptoms Associated Symptoms: Positive for Nasal Congestion, Headache, Myalgias, Nausea and Productive Cough; Negative for Sinus Pressure, Vomiting, Diarrhea, Shortness of Breath, Chest Pain, Nonproductive cough or Hemoptysis Narrative Narrative: Patient presents with a sore throat that has been getting worse over the past 5 days. Patient was seen at urgent care yesterday and was told that it was thrush. Patient was given a prescription for nystatin. Patient states he did not fill this because he could not pay for it. Patient states that he came to the emergency department for a second opinion. Patient states he has sharp pain in his throat. Patient states it is worse on the left. Patient states it is worse with swallowing. Patient admits to some mild rhinorrhea and headache. Patient states he has been having a cough with some light green sputum. Patient admits to some nausea and some myalgias. ROS ROS ED Constitutional Constitutional ED: Denies chills or fever(s) Eyes Eyes: Denies blurry vision or change in vision ENT ENT ED: Reports ear pain left and rhinorrhea; Denies sore throat Cardiovascular Cardiovascular: Denies chest pain or palpitations Respiratory/Chest Respiratory/Chest: Reports cough; Denies dyspnea Gastrointestinal Gastrointestinal: Reports nausea; Denies vomiting Genitourinary Genitourinary ED: Denies dysuria or hematuria Musculoskeletal Musculoskeletal: Denies back pain or neck pain Integumentary Denies abscess or rash Neurologic Neurologic: Reports headache(s); Denies weakness Allergic/Immunologic Allergic/Immunologic ED: Denies mouth swelling or urticaria PFSH PFSH Medical History no medical history no medical history Home Medications ?Medication ?Instructions ?Recorded ?Last Taken ?Type nystatin 100,000 unit/mL oral 5 ml PO TID 14 days #210 mL 08/19/25 Unknown Rx suspension Allergy/AdvReac Type Severity Reaction Status Date / Time No Known Allergies Allergy Verified 08/21/25 00:32 Family History no significant family his Surgical History History of tonsillectomy Social History Smoking Status: Current every day smoker tobacco type: cigarettes EXAM Physical Exam Const Vital Signs: 08/21/25 00:32 Temperature 97.7 F L Temperature Source Oral Pulse Rate 88 Respiratory Rate 16 Blood Pressure 129/92 H Blood Pressure Mean 104 Pulse Ox 100 Oxygen Delivery Method Room Air Positive well nourished and well developed Constitutional Narrative: BMI is 22.2. General Appearance ED: well developed and NAD HEENT Reports moist mucous membranes HEENT Narrative: Oropharynx is mildly erythematous. There are no exudates noted. Uvula is midline and nonedematous. Airway is patent. normocephalic Neck no lymphadenopathy, supple, no meningeal signs and no JVD Neuro oriented x3, CN's II-XII intact bilaterally and no sensory deficits noted Sensorium / Orientation: alert Motor Exam: strength 5/5 throughout Psych mental status grossly normal MDM MDM MDM Narrative Medical decision making narrative: Differential diagnosis includes viral pharyngitis, and strep pharyngitis. Rapid strep will be obtained to assess for strep pharyngitis. Lab Data Attestation: I reviewed the patient's lab results. Lab results narrative: Rapid strep was reviewed and was negative. Treatment and Re-Evaluation Narrative: Patient was given a dose of Tylenol here. Patient was given a GI cocktail. Patient was advised that this could be a viral illness. Patient was instructed to drink plenty of fluids. Patient was instructed to continue Tylenol and ibuprofen as needed for pain. Patient was instructed to follow-up with his primary care physician in 5 to 7 days. Patient was instructed to return if worse in any way. Patient understood and was agreeable with the plan. All questions were answered. Discharge Plan Triage Chief Complaint: Sore Throat ED Provider: Ray Munson Dx/Rx/DC Orders Clinical Impression: Acute viral pharyngitis, Elevated blood pressure reading without diagnosis of hypertension Instructions: ED Pharyngitis, Viral Prescriptions: No Action nystatin 100,000 unit/mL suspension 5 ml PO TID 14 Days Qty: 210 0RF Rx Instructions: swish and swallow, keep in mouth as long as possible Stand Alone Forms: ED Work / School Excuse Primary Care Provider: Care Physician,No Primary Referrals: Elysia Castillo MD [Med Staff - Solid Waste Manager, Internal Medicine] - 5-7 Days Care Physician,No Primary [Primary Care Provider, Medical] Print Language: Panamanian Disposition Disposition: Home, Self Care
--- OUTSIDE RECORDS SUMMARY | 2025-08-21 00:58 | XMS RPT_ITS | CCD ---
Author Organization [facility] Care Team Providers Care Farm Truck Driver Name Role Phone ROGE TOD Unavailable Unavailable TOD GUAN Unavailable Unavailable NO REFERRING DR Unavailable Unavailable KAFOREY, TC Unavailable Unavailable KAFOREY, TC Unavailable Unavailable NO REFERRING DR Unavailable Unavailable NO REFERRING DR Unavailable Unavailable CONKLE, REMY Unavailable Unavailable CONKLE, REMY Unavailable Unavailable FRANK, REENA A Unavailable Unavailable FRANK, REENA A Unavailable Unavailable Arik Zepeda Unavailable Unavailable PROVIDER, UNKNOWN Unavailable Unavailable No, PCP Unavailable Unavailable Care Physician, No Primary Primary Care Provider Unavailable Care Physician, No Primary Referring Provider Un available Edmundo Lucio Attending Provider Care Physician, No Primary Referring Priscillava Edmundo Hanna Attending Unavailable Care Physician, No Primary Primary Care Unava ilable Care Physician, No Primary Referring Unava ilable Care Physician, No Primary Primary Care Unava ilable Edmundo Lucio Attending Unavailable Care Physician, No Primary Primary Care Unava ilable Provider, Ed Physician Attending Unavailab le Care Physician, No Primary Referring Unava ilable Care Physician, No Primary Primary Care Unava ilable Betito Jenkins Attending Unavailable Care Physician, No Primary Referring Unava ilable Edmundo Lucio Attending Unavailable Care Physician, No Primary Primary Care Unava ilable Medications Completed/Discontinued Medications Medication Drug Class(es) Dates Sig (Normalized) Sig (Original) amoxicillin 875 mg / clavulanate 125 mg oral tablet (1 source) Penicillin-class Antibacterial Start: 06-01-2025 End: 06-02-2025 Amoxicillin-Pot Clavulanate 875-125 mg tablet Discontinued 1 {tbl} PO Q12H 20 10 0 June 01, 2025 12:00am June 10, 2025 12:00am June 02, 2025 8:26am Acute sinusitis, unspecified Problems Active Problems Problem Classification Problem Date Documented Da te Episodic/Chronic Administrative/social admission (2 sources) Patient encounter status; Translations: [Encounter for pre-employment examination] 06-02-2025 Episodic Disorders of teeth and jaw (4 sources) Dental caries; Translations: [Dental caries, unspecified] 04-28-2024 Episodic External Injury - Struck by; against (1 source) Striking against or struck by other objects, initial encounter; Translations: [STRIKING AGNST/STRUCK OT] Onset: 08-09-2017 Other upper respiratory infections (1 source) Acute pharyngitis, unspecified; Translations: [Acute pharyngitis, unspecified] Onset: 08-19-2025 Episodic Substance-related disorders (5 sources) Cannabis abuse, uncomplicated; Translations: [Nicotine dependence, cigarettes, uncomplicated] Onset: 08-20-2017 04-28-2024 Chronic Past or Other Problems Problem Classification Problem Date Documented Da te Episodic/Chronic Cardiac dysrhythmias (1 source) Palpitations; Translations: [PALPITATIONS] Onset: 08-20-2017 Episodic Nonspecific chest pain (7 sources) Other chest pain; Translations: [Chest pain, unspecified] Onset: 08-20-2017 Episodic Other aftercare (1 source) Other terminal make up operator (current) drug therapy; Translations: [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] Onset: 08-20-2017 Episodic Other injuries and conditions due to external causes (2 sources) Unspecified injury of right wrist, hand and finger(s), initial encounter; Translations: [UNS INJ RT WRIST HAND FI] Onset: 08-09-2017 Episodic Residual codes; unclassified (1 source) Procedure and treatment not carried out due to patient leaving prior to being seen by health care provider; Translations: [Procedure and treatment not carried out due to patient leaving prior to being seen by health care provider] Onset: 10-14-2024 Episodic Screening or history of mental health and substance abuse (1 source) Personal history of nicotine dependence; Translations: [PERSONAL HISTORY OF OSVALDO] Onset: 06-28-2017 Episodic Superficial injury; contusion (1 source) Contusion of right index finger without damage to nail, initial encounter; Translations: [CONTUS RT IF W/O DAMAGE] Onset: 08-09-2017 Episodic Results Test Name Value Interpretation Reference Range Facility Urgent Care Visit Reporton 0 08-19-2025 Urgent Care Visit Report [facility] [address], [address] [place] [address] OFFICE VISIT Date of Service: 08/19/25 MR#: [id number] Acct: [id number] Name: OSCAR ESTRADA Rep #: [id number] : 1995 Provider: MICHELLE Ventura Age/Sex: 29/M Location: [facility] Status: Signed Intake Vital Signs 09/22/24 17:01 08/19/25 13:36 Height 5 ft 6 in Weight: 142 lb 14.4 oz BMI 23.1 BP 115/78 104/60 Blood Pressure Location Lt brachial Position Sitting Respiration 16 14 Pulse 72 74 Pulse Source NIBP Temp 98.7 F 98.5 F Temp Source Temporal Oral Pulse Oximetry (%) 98 98 Oxygen Delivery Method room air Intake Visit Reasons: SORE THROAT , L EAR PAIN Chief Complaint: ST, left ear pain Escalator Constructor Required: No Is patient in pain?: Yes Allergies No Known Allergies Allergy (Verified 08/19/25 13:36) Medications ???Medication ???Instructions ???Recorded ???Confirmed ???Type nystatin 100,000 unit/mL oral 5 ml PO TID 14 days #210 mL 08/19/25 Rx suspension Have you fallen in the past year?: No Nurse's Note: ST, left ear pain x 3 days. white patches on uvula. hx tonsillectomy, concern for strep. denies fever, cough, congestion. [facility] Surgical History (Updated 08/19/25 @ 13:37 by Sarah Lopez) History of tonsillectomy Social History (Updated 04/20/24 @ 21:[address] Ray Munson, DO) Smoking Status: Current every day smoker tobacco type: cigarettes HPI HPI Chief Complaint: ST, left ear pain Details: OCSAR ESTRADA, is a 29 M who presents to the office today for evaluation of sore throat and left ear pain. Patient states that his symptoms began approximately 3 days ago when he noticed discomfort with swallowing described as razor blades along with white patches in the back of his mouth. He states that he previously did experience recurrent strep for which he underwent tonsillectomy. He also notes that he is experiencing left ear pain that he feels is associated with his throat since the pain will worsen with swallowing. Patient denies symptoms of fever, cough, nasal congestion, and headache. Patient is not currently utilizing any treatment for this issue at this time. ROS Const Constitutional: No chills or fever(s) Eyes Eyes: No irritation, discharge or eye pain ENT ENT: Positive for ear or mastoid pain, post nasal drip and sore throat; No ear discharge, nasal congestion, sinus pressure, sinus pain, nasal discharge or throat swelling Resp Respiratory: Positive for cough; No chest congestion, excessive phlegm production, shortness of breath or wheezing Cardio Cardiology: No chest pain at rest, chest pain with exertion, dyspnea on exertion, irregular heart rhythm or palpitations Gastro GI: No abdominal pain, change in bowel habits, constipation, diarrhea, nausea/dyspepsia or vomiting Aller/Imm Allergy/Immunologic: No seasonal allergy symptoms, throat swelling or wheezing Exam Const General: cooperative and no acute distress HENMT Ears: external ears normal and TM's normal bilaterally Nose: nares normal, nasal mucous membranes and turbinates normal and no nasal discharge Face and sinus: sinuses nontender Mouth: oral mucosae normal Throat: posterior oropharynx normal, posterior oropharynx abnormal other (white patches adhered to uvula) and other (copious post nasal discharge) Eyes Conjunctivae: conjunctivae normal Sclera: sclerae normal Neck Lymphatic: no lymphadenopathy noted Resp Auscultation: Bilateral: Clear to Auscultation Cardio Rate: regular rate Rhythm: regular rhythm Heart Sounds: S1 normal and S2 normal Coding Level of Care Code Established Pt Off vis,est,level 3 Patient Type Established History Expanded Problem Focused Exam Expanded Problem Focused Medical Decision Making Moderate Complexity Diagnoses Oropharyngeal candidiasis B37.0 Assessment and Plan Assessment and Plan (1) Oropharyngeal candidiasis: Status: Acute Plan: Treat as indicated below, if persistent or worsening symptoms f/u with PCP or back in the [facility] for reevaluation. Reviewed conservative measures with OTC treatment options for symptom control. Patient voiced understanding and agreement with plan. Orders: Orders POC Rapid Strep A Today J02.9 - Acute pharyngitis, unspecified Medications: New nystatin swish and swallow, keep in mouth as long as possible 5 mL PO TID 210 mL 0RF 14 days Clinical Quality Measures Falls Risk Screening/Assistive Devices Have you fallen in the past year?: No 08/19/25 1401 Date Betito Chun Signature: Date (if applicable) CC: Normal [facility] Office Visit Reporton 2024 Office Visit Report [facility] [address] [place] [address] OFFICE VISIT Date of Service: 06/23/25 MR#: [id number] Acct: [id number] Patient: OSCAR ESTRADA Rep #: [id number] : 1995 Provider: MICHELLE Morales Age/Sex: 29/M Location: [facility] Status: Signed Intake Vital Signs 09/22/24 17:01 Height 5 ft 6 in Weight: 142 lb 14.4 oz BMI 23.1 BP 115/78 Respiration 16 Pulse 72 Temp 98.7 F Temp Source Temporal Pulse Oximetry (%) 98 Intake 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 Allergies No Known Allergies Allergy (Verified 04/20/24 20:09) Office Procedures [facility] Billing Sheet Testing Pre-Employment Drug Screen: Yes 06/29/25 0944 Date Edmundo Chun Signature: Date (if applicable) CC: Normal [facility] Office Visit Reporton 2024 Office Visit Report [facility] [address] [address] OFFICE VISIT Date of Service: 06/01/25 MR#: [id number] Acct: [id number] Patient: OSCAR ESTRADA Rep #: [id number] : 1995 Provider: MICHELLE Morales Age/Sex: 29/M Location: [facility] Status: Signed Intake Vital Signs 09/22/24 17:01 Height 5 ft 6 in Weight: 142 lb 14.4 oz BMI 23.1 BP 115/78 Respiration 16 Pulse 72 Temp 98.7 F Temp Source Temporal Pulse Oximetry (%) 98 Intake Visit 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 Allergies No Known Allergies Allergy (Verified 04/20/24 20:09) Office Procedures [facility] Billing Sheet Testing Breath Alcohol Test Pre-Employment: Yes Pre-Employment Drug Screen: Yes Pre-Employment PE: Yes 06/08/25 1135 Date Edmundo MARTINEZ Cosigner Signature: Date (if applicable) CC: Normal [facility] Urgent Care Visit Reporton 0 06-01-2025 Urgent Care Visit Report [facility] [address], [address] [place] [id number] OFFICE VISIT Date of Service: 06/01/25 MR#: [id number] Acct: [id number] Name: OSCAR ESTRADA Rep #: [id number] : 1995 Provider: MICHELLE Morales Age/Sex: 29/M Location: [facility] Status: Signed Intake Vital Signs 09/22/24 17:01 Height 5 ft 6 in Intake Visit 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 Ray Munson, DO) Smoking Status: Current every day smoker tobacco type: cigarettes HPI HPI Details: OSCAR ESTRADA, is a 29 M who presents to the office today for Office Procedures Physical Exam Coding PE Coding Pre-employment PE: Yes Coding Level of Care Code Attention Marino Diagnoses Encounter for pre-employment health screening examination Z02.1 Assessment and Plan Assessment and Plan (1) Encounter for pre-employment health screening examination: Status: Acute 06/02/25 0827 Date Edmundo Chun Signature: Date (if applicable) CC: [facility] ED NOTEon 01-30-2024 ED NOTE HNO ID: [id number] Author: MIHAI MCADAMS RN Service: Emergency Medicine Author Type: Registered Nurse Type: ED Notes Filed: 01/30/2024 18:14 Note Text: Patient is alert and oriented, denies any questions/concerns at this time. Patient verbalizes understanding of d/c instructions, medications and follow up care. Patient ambulates from department at this time with family member [facility] ED NOTE HNO ID: [id number] Author: MIHAI MCADAMS RN Service: Emergency Medicine Author Type: Registered Nurse Type: ED Notes Filed: 01/30/2024 16:53 Note Text: Pt reports working on his car when radiator fluid splashed onto his L hand and L side of face/ denies any SOB. Pt is alert and oriented brought in by EMS. [facility] ED PROV NOTEon 01-30-2024 ED PROV NOTE HNO ID: [id number] Author: AMERICA VEGA MD Service: Emergency Medicine [...] 62.6 kg (138 lb) 1.676 m (5' 6) Physical Exam Vitals and nursing note reviewed. [...] Given Durin (more content not included)... Normal [facility] ED NOTEon 12-07-2023 ED NOTE HNO ID: [id number] Author: NATALEE CLARK RN Service: Nursing Author [...] for worsening or life threatening symptoms. Normal [facility] ED NOTE HNO ID: [id number] Author: HEDY MAS RN Service: ? Author Type: Registered Nurse Type: ED Notes Filed: 12/07/2023 15:00 Note Text: Pain in left lower jaw,pt has multiple fractured teeth. Pt also has an appointment with dentist tomorrow and but is having pain Normal [facility] ED PROV NOTEon 12-07-2023 ED PROV NOTE HNO ID: [id number] Author: ANEDRSON JOHNSON MD Service: Emergency Medicine Author Type: Physician [...] 63.5 kg (140 lb) 1.676 m (5' 6) Physical Exam Well-appearing, non-toxic and in no [...] plan and is agreeable with it. SIGNATURE: MD Ben Rubio ELENI 12/07/23 1759 Normal [facility] Amb Office-Progress Notes-Pr dimitri 12-11-2020 Amb Office-Progress Notes-Provider Patient: OSCAR ESTRADA Age: 24 years Sex: Male : 1995 Associated Diagnoses: None Author: CINTHIA SALDANA MD Visit Information Visit type: Scheduled follow-up. Accompanied [...] Hypothyroid, Hodgkin's Disease Hypothyroid. Comments: 07/05/2014 9:43 EDT - Areli Dougherty Hypothyroid- Father Hodgkin's disease Comments: 07/05/2014 9:43 EDT - Areli Dougherty Hodgkin's Disease- Father Sister: Family History- Blood Clotting disorder Asthma. Comments: 07/05/2014 9:39 EDT - Areli Dougherty Asthma- Sister Blood clotting disorder. Comments: 07/05/2014 9:39 EDT Areli Cespedes In stable health, Blood Clotting disorder- Sister Mother: Family History- Blood Clotting disorder, Hypothyroid Blood clotting disorder. Comments: 07/05/2014 9:39 HERACLIOT Areli Cespedes Blood Clotting disorder- Mother, (Patient was tested and he was negative) Hypothyroid. Comments: 07/05/2014 9:39 EDT Areli Cespedes Hypothyroid- Mother Fibromyalgia. Comments: 07/05/2014 9:39 EDT Areli Cespedes Fibromyalgia- Mother Brother: Brother 2 Hypothyroid. Comments: 07/05/2014 9:39 EDT Areli Cespedes In stable health- Brother 2, Hypothyroid Procedure history: Eustachian tubes ([id number]). Adenoidectomy (703223670). Tonsillectomy (010847214). Social History Social History Tobacco Never smoker, [...] Charted Heart Rate Apical 62 bpm (DEC 11 09:55) Weight 62 kg (DEC 11 09:55) Height 168 cm (DEC 11 09:55) BMI 21.97 (DEC 11 09:55) General: Alert and oriented, No acute distress. [...] Electronically signed by Dr. Charley Saldana. Normal [facility] Ambulatory Clinical Summaryo n 12-11-2020 Ambulatory Clinical Summary OSCAR ESTRADA :1995 Visit Date:12/11/2020 Ambulatory Visit Instructions Your Diagnosis Attention-deficit hyperactivity disorder, combined type Nicotine dependence, cigarettes, uncomplicated Sinus tachycardia Your Care Team Attending Physician - SHANA HAMLIN, THAN Primary Care Physician - ABBE COLLINS DO [...] Where can you learn more? Go to [email or web address].ne t/patientEd Enter X886 in the search box to learn more about Learning About Cardioversion. Current as of: November 14, 2019 Content Version: 12.5; ? [employer]. Care instructions adapted under license by your healthcare professional. If you have questions about a medical condition or this instruction, always ask your healthcare professional. [employer] disclaims any warranty or liability for your [...] call to get immediate medical attention! Normal [facility] Discharge Educationon 2020 Discharge Education Cardiovascular Learning [...] Where can you learn more? Go to [email or web address] t/patientEd Enter X886 in the search box to learn more about Learning About Cardioversion. Current as of: November 14, 2019 Content Version: 12.5; ? [id number] [employer]. Care instructions adapted under license by your healthcare professional. If you have questions about a medical condition or this instruction, always ask your healthcare professional. [employer] disclaims any warranty or liability for your use of this information. Normal [facility] ED NOTEon 09-16-2020 ED NOTE HNO ID: [id number] Author: Hedy Diane) BETHEL Mas Service: Emergency [...] anything else to help you? No Normal [facility] ED PROV NOTEon 09-16-2020 ED PROV NOTE HNO ID: [id number] Author: Angelito Dan MD Service: Emergency Medicine Author Type: Physician Type: ED Provider Notes Filed: 09/17/2020 2:33 AM Note Text: ED Provider Note Patient Name: Oscra Estrada SERVICE DATE: 09/16/20 History Patient presents with: Flu Like Symptoms Patient presents with concerns over acute upper respiratory symptoms, and he was sent home from work for evaluation. 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 Patient notes his fever was up to 101 at home. No medications were taken today prior to presentation. Sick contacts include fiance, and 2 daughters with similar symptoms. Patient [...] clean your hands with an alcohol-based hand test pilot that contains at least 60% alcohol. Wash your hands often with soap and water for at least 20 seconds, especially after blowing your nose, coughing, or sneezing; going to the bathroom; and before eating or preparing food. If soap and water are not readily available, use an alcohol-based hand test pilot with at least 60% alcohol, covering all [...] isolation precautions should be made on a [id number] basis, in consultation with healthcare providers and [...] 20 seconds or use an alcohol-based hand test pilot that contains 60 to 95% alcohol, covering [...] with soap and water or alcohol-based hand test pilot. Next, remove and dispose of facemask, and immediately clean your hands again with soap and water or alcohol-based hand test pilot. Avoid sharing household items with the patient. [...] soap and water or an alcohol-based hand test pilot) immediately after removing your gloves. Read and [...] soap and water or an alcohol-based hand test pilot) immediately after handling these items. Soap and [...] MD Angelito Barclay MD 09/17/[address] [facility] ED NOTEon 03-23-2020 ED NOTE HNO ID: [id number] Author: José Antonio ScottRn) BETHEL Hoff Service: [...] anything else to help you? Yes Normal [facility] ED NOTE HNO ID: [id number] Author: Jenny ScottRn) BETHEL Talavera Service: Emergency Medicine Author Type: Registered Nurse Type: ED Notes Filed: 03/23/2020 4:46 PM Note Text: Pt reports nausea that started last night with a couple episodes of vomiting Pt denies abdominal pain or diarrhea. Reports I figured Id get it checked out since I missed work today Normal [facility] ED PROV NOTEon 03-23-2020 ED PROV NOTE HNO ID: [id number] Author: America Vega MD Service: Emergency Medicine [...] MD America Leal MD 03/23/[address] [facility] Basic Panelon 10-29-2017 Anion gap 9 mmol/L Normal 8-20 [facility] Comment on above: Performed By: #### L P8 ####[facility] [place], [place] [address] BUN (urea nitrogen) 13 mg/dL Normal 7-25 [facility] Comment on above: Performed By: #### L P8 ####[address] [address] BUN/Creatinine Ratio 14 mg/mg Normal 10-20 [facility] Comment on above: Performed By: #### L P8 ####[address] [address] Calcium 9.3 mg/dL Normal 8.5-10.1 [facility] Comment on above: Performed By: #### L P8 ####[address] [address] Chloride 102 mmol/L Normal 98-107 [facility] Comment on above: Performed By: #### L P8 ####[address] [address] CO2 29 mmol/L Normal 21-32 [facility] Comment on above: Performed By: #### L P8 ####[address] [address] Creatinine 0.95 mg/dL Normal 0.67-1.17 [facility] Comment on above: Performed By: #### L P8 ####[address] [address] Glucose mass conc 100 mg/dL High 70-99 [facility] Comment on above: Performed By: #### L P8 ####[place] [address] Potassium molar conc 3.7 mmol/L Normal 3.5-5.1 [facility] Comment on above: Performed By: #### L P8 ####[address] [place] [address] Sodium 136 mmol/L Normal 136-145 [facility] Comment on above: Performed By: #### L P8 ####[facility] [place] [id number] MDRD eGFRon 10-29-2017 eGFR (non-black) mL/min/{1.73_m2} Normal >60mL/m in/1.7 3m2 [facility] Comment on above: Result Comment: If t he patient is , multiply the result by 1.210. Performed By: #### L GFR ####[place] [id number] CR Chest PA/LATon 08-22-2017 CR Chest PA/LAT Patient Name: OSCAR ESTRADA Diagnostic Radiology Exam Date/Time 08/22/2017 04:24:12 EDT Exam CR Chest PA/LAT Ordering Physician MICHELLE RENEE DIANE A. Accession Number [id number] CPT4 Codes 54002 () Reason For Exam chest pain Report [...] Transcribed Date and Time: 08/22/2017 4:48 Normal [facility] Basic Panelon 08-20-2017 Anion gap 10 mmol/L Normal 8-20 [facility] Comment on above: Performed By: #### L P8 ####[place] [id number] BUN (urea nitrogen) 13 mg/dL Normal 7-25 [facility] Comment on above: Performed By: #### L P8 ####[address], [place] [address] BUN/Creatinine Ratio 13 mg/mg Normal 10-20 [facility] Comment on above: Performed By: #### L P8 ####[facility] [place] [address] Calcium 9.3 mg/dL Normal 8.5-10.1 [facility] Comment on above: Performed By: #### L P8 ####[facility] [place] [address] Chloride 105 mmol/L Normal 98-107 [facility] Comment on above: Performed By: #### L P8 ####[facility] [place] [address] CO2 29 mmol/L Normal 21-32 [facility] Comment on above: Performed By: #### L P8 ####[place] [address] Creatinine 1.04 mg/dL Normal 0.67-1.17 [facility] Comment on above: Performed By: #### L P8 ####[facility] [place] [address] Glucose mass conc 108 mg/dL High 70-99 [facility] Comment on above: Performed By: #### L P8 ####[place] [address] Potassium molar conc 4.2 mmol/L Normal 3.5-5.1 [facility] Comment on above: Performed By: #### L P8 ####[place] [address] Sodium 139 mmol/L Normal 136-145 [facility] Comment on above: Performed By: #### L P8 ####[place] [address] CHEST SINGLE VIEWon 08-20-20 17 CHEST SINGLE VIEW Performed at [facility] APPROVED BY: Jose Ramon Moore MD EXAMINATION: CHEST RADIOGRAPH (SINGLE VIEW AP OR PA) Clinical History: chest painM: XC1_3Comparison: 06/28/2017 RESULT: Lines, tubes, and devices: None. Lungs and pleura: No consolidation. No lung mass. No pleural effusion. Cardiomediastinal silhouette: Normal cardiomediastinal silhouette. Other: IMPRESSION: No acute radiographic abnormality. Normal [facility] D-Dimer Quantitativeon 08-20 D-Dimer Quantitative 57 ng/mL(FEU) Normal <450 [facility] Comment on above: Result Comment: The cutoff level recommended for the exclusion of deep veinthrombosis (DVT) or pulmonary embolism (PE) is 450 ng/mL(FEU).It is recommended that DVT or PE exclusion be restricted tosuspected outpatients with a low to moderate pretest probabilitymodel. Performed By: #### L DMR ####[address] [address] Hemogram/Diffon 08-20-2017 Basophils Auto #/vol (Bld) 0.04 thou/cmm Normal 0.00-0.08 [facility] Comment on above: Performed By: #### L CBCD ####[address] [address] Basophils/100 WBC Auto (Bld) 0.5 % Normal [facility] Comment on above: Performed By: #### L CBCD ####[address] [address] Eosinophils 0.14 thou/cmm Normal 0.00-0.41 [facility] Comment on above: Performed By: #### L CBCD ####[address] [address] Eosinophils/100 leukocytes 1.9 % Normal [facility] Comment on above: Performed By: #### L CBCD ####[address] [address] Erythrocyte distribution width Auto Ratio (RBC) 12.0 % Normal 11.5-15.9 [facility] Comment on above: Performed By: #### L CBCD ####[address] [address] Erythrocytes (RBC) 4.60 mil/cmm Normal 4.60-6.20 [facility] Comment on above: Performed By: #### L CBCD ####[place] [address] Hematocrit (HCT) 42.2 % Normal 42.0-52.0 [facility] Comment on above: Performed By: #### L CBCD ####[place] [address] Hemoglobin mass conc (Bld) 14.3 g/dL Normal 14.0-18.0 [facility] Comment on above: Performed By: #### L CBCD ####[place] [address] Lymphocytes 2.16 thou/cmm Normal 1.50-3.65 [facility] Comment on above: Performed By: #### L CBCD ####[place] [address] Lymphocytes/100 leukocytes 29.6 % Normal [facility] Comment on above: Performed By: #### L CBCD ####[place] [address] MCH 31.1 pg High 27.0-31.0 [facility] Comment on above: Performed By: #### L CBCD ####[place] [address] MCHC mass conc (RBC) 33.9 % Normal 32.0-36.0 [facility] Comment on above: Performed By: #### L CBCD ####[place] [address] MCV 91.7 fL Normal 80.0-94.0 [facility] Comment on above: Performed By: #### L CBCD ####[place] [address] Monocytes 0.81 thou/cmm Normal 0.20-1.00 [facility] Comment on above: Performed By: #### L CBCD ####[place] [address] Monocytes/100 leukocytes 11.1 % Normal [facility] Comment on above: Performed By: #### L CBCD ####[place] [address] Platelet mean volume (PMV) 9.0 fL Normal 7.1-10.5 [facility] Comment on above: Performed By: #### L CBCD ####[facility] [place], [place] [address] Platelets 271 thou/cmm Normal 150-400 [facility] Comment on above: Performed By: #### L CBCD ####[place] [address] Seg Neutrophil 56.9 % Normal [facility] Comment on above: Performed By: #### L CBCD ####[place] [address] Seg. Neut.# 4.15 thou/cmm Normal 3.00-5.67 [facility] Comment on above: Performed By: #### L CBCD ####[place] [address] WBC (Leukocytes) 7.3 thou/cmm Normal 4.8-10.8 [facility] Comment on above: Performed By: #### L CBCD ####[place] [address] MDRD eGFRon 08-20-2017 eGFR (non-black) mL/min/{1.73_m2} Normal >60mL/m in/1.7 3m2 [facility] Comment on above: Result Comment: If t he patient is , multiply the result by 1.210. Performed By: #### L GFR ####[place] [address] Troponin Ion 08-20-2017 Troponin I.cardiac mass conc ng/mL Normal <=0.07 [facility] Comment on above: Performed By: #### L TRP ####[place] [address] Urine Drug Screenon 08-20-20 17 Urine Amphetamine Non-Detected Normal Non-Detected [facility] Comment on above: Performed By: #### L UDR2 ####[place] [address] Urine Barbiturates Non-Detected Normal Non-Detected [facility] Comment on above: Performed By: #### L UDR2 ####[facility] [place], [place] [address] Urine Benzodiazepine Non-Detected Normal Non-Detected [facility] Comment on above: Performed By: #### L UDR2 ####[facility] [place], [place] [address] Urine Buprenorphine Non-Detected Normal Non-Detected [facility] Comment on above: Result Comment: Urin [...] used for medical diagnosticpurposes only.Testing Performed at: [place] [address] Performed By: #### L UDR2 ####[address] [address] Urine Cocaine Non-Detected Normal Non-Detected [facility] Comment on above: Performed By: #### L UDR2 ####[address] [address] Urine Methadone Non-Detected Normal Non-Detected [facility] Comment on above: Performed By: #### L UDR2 ####[facility] [place], [place] [address] Urine Methamphetamine Non-Detected Normal Non-Detected [facility] Comment on above: Performed By: #### L UDR2 ####[address] [address] Urine Opiate Non-Detected Normal Non-Detected [facility] Comment on above: Performed By: #### L UDR2 ####[facility] [place], [place] [address] Urine Oxycodone Non-Detected Normal Non-Detected [facility] Comment on above: Performed By: #### L UDR2 ####[facility] [place], [place] [address] Urine PCP Non-Detected Normal Non-Detected [facility] Comment on above: Performed By: #### L UDR2 ####[facility] [place], [place] [address] Urine Propoxyphene Non-Detected Normal Non-Detected [facility] Comment on above: Performed By: #### L UDR2 ####[facility] [place], [place] [address] Urine THC see below Normal Non-Detected [facility] Comment on above: Result Comment: Dete cted (unconfirmed) Performed By: #### L UDR2 ####[facility] [place], [place] [address] Urine Tricyclics Non-Detected Normal Non-Detected [facility] Comment on above: Performed By: #### L UDR2 ####[facility] [place], [place] [address] HAND MIN 3 VIEW UNILATERALon 08-09-2017 HAND MIN 3 VIEW UNILATERAL Performed at [facility] APPROVED BY: Tod Munoz MD EXAM [...] or dislocation involving the right hand. Normal [facility] CHEST SINGLE VIEWon 06-28-20 17 CHEST SINGLE VIEW Performed at [facility] APPROVED BY: CHE PARR MD TECHNIQUE: CHEST X-RAY PORTABLE SINGLE VIEW EXAM DATE: 06/28/2017 4:46 AM COMPARISON STUDIES: 01/28/2009 CLINICAL HISTORY: chest pain RESULT: Cardiomediastinal silhouette within normal limits. No overt pneumothorax or pleural effusion or focal consolidation. IMPRESSION:No acute abnormality Normal [facility] Troponin Ion 06-28-2017 Troponin I.cardiac mass conc ng/mL Normal <=0.07 [facility] Comment on above: Performed By: #### L TRP ####[address] [address] Encounters Encounter Date Encounter Type Care Provider Facility Start: 08-19-2025 End: 08-19-2025 ambulatory No Primary Care Physician Facility:[facility] Start: 06-23-2025 End: 06-23-2025 Patient encounter procedure Edmundo Flowers [facility] Work Phone: Start: 06-23-2025 End: 06-23-2025 ambulatory No Primary Care Physician -[facility] Start: 06-01-2025 End: 06-01-2025 Patient encounter procedure Edmundo Flowers PA [facility] Work Phone: Start: 06-01-2025 End: 06-01-2025 ambulatory No Primary Care Physician -[facility] Start: 09-22-2024 End: 09-22-2024 Emergency department patient visit No Primary Care Physician Facility:[facility] Start: 01-30-2024 Emergency department patient visit Facility:[facility] Start: 12-07-2023 Emergency department patient visit Facility:[facility] Start: 10-05-2017 Ambulatory REENA MARIE [facility]ilit y[facility] Start: 08-22-2017 Ambulatory Arik Pedraza [facility] Start: 08-20-2017 End: 08-20-2017 Emergency department patient visit NO REFERRING DR Facility:[facility] Start: 08-09-2017 End: 08-09-2017 Emergency department patient visit TC DAVIES Facility:[facility] Start: 06-28-2017 End: 06-28-2017 Emergency department patient visit TOD GUAN Facility:[facility] Payers Date Payer Category Payer Self-pay 2022 Medicaid [id number] Medicaid [id number] Unknown Unknown [id number] Unknown [id number] [id number] Unknown [id number] [id number] [id number] Unknown [id number] [id number] [id number] Unknown [id number] [id number] [id number] Social History Date Type Detail Facility [facility]: [facility] Start: 1995 Sex Assigned At Male [facility] Evaluation note 06-01-2025 Note Date & Type Note Facility 06-01-2025 Evaluation note Diagnosis Onset Date Resolution Encounter for pre-employment health screening examination acute June 01, 2025 2:52pm [place] [facility] Work Phone: Evaluation note Note Date & Type Note Facility Evaluation note No assessment information availa ble [place] [facility] Work Phone: Reason for referral (narrative) Note Date & Type Note Facility Reason for referral (narrative) No reason for referral information available [place] [facility] Work Phone: Summary Purpose Family History No Family History Records FoundNo Family History Records FoundNo Family History Records FoundNo Family History Records FoundNo Family History Records FoundNo Family History Records Found Advance Directives No Advanced Directives Records FoundNo Advanced Directives Records FoundNo Advanced Directives Records FoundNo Advanced Directives Records FoundNo Advanced Directives Records FoundNo Advanced Directives Records Found Chief Complaint and Reason for Visit Chief Complaint Admit Date PE NON DOT PHYSICAL/ [place] [employer] June 01, 2025 2:52pm PE NON DOT DRUG & BAT/ [place] [facility] May 2:56pm Chief Complaint Admit Date PE NON DOT PHYSICAL/ [place] [employer] June 01, 2025 2:52pm PE NON DOT DRUG & BAT/ [place] [facility] May 2:56pm PE/NON DOT DRUG/[employer] S June 23, 2025 4:10pm Reason for Visit Admit Date Encounter for pre-employment health scre ening examination June 01, 2025 2:52pm Additional Source Comments (unrecognized sect ion and content) No Status Records FoundNo Status Records FoundNo Status Records FoundNo Status Records FoundNo Status Records FoundNo Status Records Found INFORMATION SOURCE (unrecogn ized section and content) DATE CREATED AUTHOR 05/25/2018 [facility] DATE CREATED AUTHOR AUTHOR'S ORGANIZ ATION 05/28/2018 [facility] DATE CREATED AUTHOR AUTHOR'S ORGANIZ ATION 09/17/2020 [facility] DATE CREATED AUTHOR AUTHOR'S ORGANIZ ATION 12/12/[address] [facility] DATE CREATED AUTHOR AUTHOR'S ORGANIZ ATION 02/01/2024 [facility] DATE CREATED AUTHOR AUTHOR'S ORGANIZ ATION 08/20/2025 [facility] [place] [facility] Care Teams (unrecognized sec tion and content) Team Status: Active Member Role/Relationship Status Dates No Primary Care Physician Primary Care Provider Active Team Status: Inactive Member Role/Relationship Status Dates No Primary Care Physician Primary Care Provider Active Start: June 01, 2025 End: June 01, 2025 No Primary Care Physician Referring Provider Active Start: June 01, 2025 End: June 01, 2025 MICHELLE Sheffield Attending Provider Active Sta rt: June 01, 2025 End: June 01, 2025 Team Status: Inactive Member Role/Relationship Status Dates No Primary Care Physician Primary Care Provider Active Start: June 01, 2025 End: June 01, 2025 No Primary Care Physician Referring Provider Active Start: June 01, 2025 End: June 01, 2025 MICHELLE Sheffield Attending Provider Active Sta rt: June 01, 2025 End: June 01, 2025 Team Status: Inactive Member Role/Relationship Status Dates No Primary Care Physician Primary Care Provider Active Start: June 23, 2025 End: June 23, 2025 No Primary Care Physician Referring Provider Active Start: June 23, 2025 End: June 23, 2025 MICHELLE Sheffield Attending Provider Active Sta rt: June 23, 2025 End: June 23, 2025 Goals (unrecognized section and content) Goals may be documented in a n alternate sectionGoals may be documented in an alternate sectionGoals may be documented in an alternate section FOR RECORDS PERTAINING TO PATIENTS WHO ARE [...] BE BASED ON THE PRIMARY CLINICAL RECORDS. [facility] [employer] [facility]. provides no warranty or guarantee of the accuracy or completeness of information in this document.
[2025-08-21] MEDS: Lidocaine 2% Viscous15 ML UDC 15 ML PO (02:04)
[2025-08-21 02:06] VITALS: BP 118/73; PULSE 74; RESP 16; TEMP 36.5; O2SAT 100
== END 2025-08-21 02:08 | disposition home or self-care (01) ==
PROVIDERS: Emergency Provider Emergency Medicine; Visit Provider Emergency Medicine
DX: J02.8 Acute pharyngitis due to other specified organisms (principal); R03.0 Elevated blood-pressure reading, without diagnosis of hypertension; F17.210 Nicotine dependence, cigarettes, uncomplicated
CPT/HCPCS: 87651; 99283